=== PATIENT | female | born 1990 | race Caucasian/White ===

== ENCOUNTER → 2017-11-18 | Outpatient (CLI) | payer OTHER ==
[~2017-11-18] MED LIST: ALPR-411 PO; AMIT25TA9 PO; CITA10TA4 PO; DICY10CA12 PO; ONDA4TAB46 PO; PANT40TA PO
--- NOTE | 2017-11-18 12:35 | DIAGNOSTIC IMAGING REPORT ---
(BARIUM SWALLOW) ESOPHAGUS CLINICAL HISTORY: Abdominal pain, nausea and vomiting. COMPARISON STUDY: None. FLUOROSCOPY TIME: 1.1 minutes. 20 fluoroscopic images were obtained. FINDINGS: Esophageal motility was normal. No esophageal mass or stricture was identified. A 13 mm barium tablet passed freely into the stomach. No reflux was elicited. No hiatal hernia was noted. IMPRESSION: Normal barium swallow. Electronically signed by: Marcin Eubanks M.D. 11/18/2017 12:33 PM Dictated Date/Time: 11/18/2017 12:33 PM
== END | disposition home or self-care (01) ==
LOC: C.RAD 11:48
PROVIDERS: ATTEND Internal Medicine
DX: R10.13 Epigastric pain (principal); R11.2 Nausea with vomiting, unspecified

== ENCOUNTER 2019-02-23 07:31 | Inpatient (IN) ==
[2019-02-23] MEDS ORDERED: OXYTOCIN 30 UNITS/500 ML BAG IV PRN (09:51)
[2019-02-23] MEDS ORDERED: LACTATED RINGER'S 1,000 ML IV PRN (09:51)
[2019-02-23 10:14] LABS: Hematocrit (blood only) 32.5 % (37-47); Hemoglobin 11.6 g/dL (12.0-16.0); Mean Platelet Volume 9.1 fL (7.4-10.4); Platelet Count 240 K/uL (130-400); RDW Coefficient of Variation 13.3 % (11.5-14.5); RDW Standard Deviation 43.5 fL (36.4-46.3); Red Blood Count 3.61 M/uL (4.2-5.4); White Blood Count 11.21 K/uL (4.8-10.8)
[2019-02-23] MEDS ORDERED: miSOPROStol 25 MCG TAB PV ONE (10:14)
[2019-02-23] MEDS ORDERED: DINOPROSTONE 10 MG INSERT PV ONE (10:19)
--- NOTE | 2019-02-23 10:19 | Obstetrical Progress Note ---
Date of Service February 23, 2019 Subjective Admit Note 28 F P0000 at 37 weeks admitted for induction of labor for cholestasis of with bile acids in office of 14. Patient received steroids for lung maturation last week. GBS is negative. FHT Cat 1. Cervix is 1/50/- 3/posterior/soft/vertex/intact. EFW 7.5 lbs. Will start with Cervidil 10 mg vaginally. discussed with patient and spouse. Results & Data Vital Signs (Past 12 Hours) Vital Signs Temp Pulse Resp BP 02/23/19 10:00 96 H 125/85 02/23/19 09:53 37.3 C 18
[2019-02-23 10:41] LABS: Mean Corpuscular Hgb Conc 35.7 g/dL (32-36)
--- NOTE | 2019-02-23 11:14 | Obstetrical Progress Note ---
Date of Service February 23, 2019 Physical Exam Physical Exam: Cervidil 10 mg placed vaginally. T Cat 1. Will monitor for 2 hours then ambulate. Results & Data Vital Signs (Past 12 Hours) Vital Signs Temp Pulse Resp BP 02/23/19 10:00 96 H 125/85 02/23/19 09:53 37.3 C 18
[2019-02-23] MEDS: LACTATED RINGER'S 1,000 ML IV SCH (18:36)
[2019-02-23] MEDS ORDERED: OXYTOCIN 20 UNITS in LACTATED RINGER'S 1,000 ML IV SCH (20:15)
--- NOTE | 2019-02-23 23:12 | Obstetrical Progress Note ---
Date of Service February 23, 2019 Physical Exam Physical Exam: Cervidil pulled out of vagina. Cervix 2/50/50/- 3/vertex/midposition. FHT Cat 1. Will allow to eat/shower. Will start Cytotec 50mcg orally. Results & Data Vital Signs (Past 12 Hours) Vital Signs Temp Pulse Resp BP 02/23/19 23:06 90 138/89 02/23/19 19:20 37.0 C 18 02/23/19 19:09 87 133/86 02/23/19 17:15 18 02/23/19 15:14 75 124/75 02/23/19 15:13 37.0 C 18 02/23/19 13:01 18 02/23/19 12:07 79 113/75 02/23/19 12:00 18
[2019-02-23] MEDS ORDERED: miSOPROStol 50 MCG TAB PO ONE (23:13)
[2019-02-23] MEDS ORDERED: BUTORPHANOL TARTRATE 2 MG/ML VIAL IV PRN (23:30)
[2019-02-24] MEDS ORDERED: LACTATED RINGER'S 1,000 ML IV PRN ×2 (07:36→09:24)
[2019-02-24] MEDS ORDERED: OXYTOCIN 30 UNITS/500 ML BAG IV PRN ×2 (07:36→23:28)
--- NOTE | 2019-02-24 07:36 | Obstetrical Progress Note ---
Date of Service February 24, 2019 Subjective Patient is seen and examined She is a 28 yo at 37.1 wks who was admitted by Dr. Donohue for IOL for ICP Reviewed her records and PMH She received Cervidil once and has been ron q 2-4 min, feels them but not very painful No LOF/VB +FM VSS Afebrile VE 3/ 50%/ -2 FHR categ I Brandi ctxs q 2-4 min Discussed augmentation of labor with low dose pitocin, agreed Epidural for pain when she desires Continue to monitor closely Results & Data Vital Signs (Past 12 Hours) Vital Signs Temp Pulse Resp BP 02/24/19 07:11 81 120/80 02/24/19 07:10 36.6 C 18 02/24/19 05:39 36.6 C 72 18 118/85 02/24/19 01:44 93 H 120/76 02/23/19 23:06 37.0 C 90 18 138/89
[2019-02-24] MEDS: LACTATED RINGER'S 1,000 ML IV SCH ×3 (07:38→13:42)
--- NOTE | 2019-02-24 08:13 | Anesthesiology Consultation ---
Date of Service February 24, 2019 Assessment & Plan Chart Review Chart Review: Acceptable Risk for Labor Epidural Consults Requested none ASA ASA2 Proposed Anesthesia Anesthesia Type: Labor Epidural Risk / Benefits Reviewed With: PT / POA / Parent / Guardian, Accepts Plan and Informed Consent Obtained History Height/Weight Height: 1.63 m Weight: 99.79 kg Allergies Allergy/AdvReac Type Severity Reaction Status Date / Time cephalexin Allergy Hives Verified 02/23/19 11:40 Penicillins Allergy Hives Unverified 08/17/18 13:24 Sulfa (Sulfonamide Allergy Hives Unverified 08/17/18 13:24 Antibiotics) Medications Home Medications Medication Instructions Recorded Confirmed Last Taken duloxetine [Cymbalta] 20 mg PO DAILY 02/23/19 02/23/19 02/22/19 pantoprazole [Protonix] 40 mg PO DAILY 02/23/19 02/23/19 02/22/19 vit-iron fum-folic ac 1 tab PO DAILY 02/23/19 02/23/19 02/22/19 [ Vitamin] Active Medications Generic Name Dose Route Start Last Admin Trade Name Freq PRN Reason Stop Dose Admin Lactated Ringer's 1,000 mls @ 150 mls/hr 02/23/19 10:00 02/24/19 07:38 Lr IV 02/25/19 09:59 999 mls/hr .[id number] BRENDA Administration Oxytocin 30 units in 500 mls @ 2 mls/hr 02/24/19 07:36 02/24/19 07:48 Pitocin IV 02/26/19 07:35 0.12 units/hr .Q24H PRN 2 mls/hr Labor Induction/Augmentation Administration Protocol 0.12 UNITS/HR NPO Date Last Intake of Fluids: 02/24/19 Time Last Intake of Fluids: 08:00 Date Last Intake of Solids: 02/24/19 Time Last Intake of Solids: 02:00 Past Medical History Medical History Depression GERD (gastroesophageal reflux disease) Controlled with medicine IBS (irritable bowel syndrome) Ostium secundum atrial septal defect history of as a baby. Has closed off since Asymptomatic No significant past medical history Exercise / Class Metabolic Activity II 4-5 Yardwork/Stairs/Walk up hill Past Family History Family History Other No significant family history Past Surgical History Surgical History H/O colonoscopy H/O esophagogastroduodenoscopy Dana teeth extracted Past Anesthesia History No Hx of Anesthesia Complications and No Family Hx of Anesthesia Complications History of PONV No Hx of PONV and Hx of Motion Sickness Social History Smoking Status: Former smoker (Quit 2 years ago) Do You Dip or Chew Tobacco: No Hx Alcohol Use: Yes alcohol intake frequency: holidays/special occasions only Hx Substance Use: No Review of Systems Denies h/o major bleeding disorder Denies taking any anticoagulant Physical Exam Vital Signs Last Vital Signs Temp 36.6 C 02/24/19 07:10 Pulse 79 02/24/19 07:50 Resp 18 02/24/19 07:10 BP 125/83 02/24/19 07:50 Constitutional + obese ENMT Mouth: no TMJ abnormality and no TMJ clicking Thyromental Distance: > or= 3.5 Finger Breadths Mallampati Class: II Neck normal visual inspection; neck extension not limited Respiratory Auscultation: lungs clear to auscultation bilaterally Cardiovascular Rate/Rhythm: regular rate and regular rhythm Psychiatric Orientation: alert and oriented x 3 Testing Laboratory Results 02/23/19 10:01
[2019-02-24] MEDS ORDERED: ePHEDrine sulfate 50 MG/ML AMP ONE (08:41)
[2019-02-24] MEDS ORDERED: BUPIVACAINE 0.25% 30 ML VIAL ONE ×2 (08:41→18:23)
[2019-02-24] MEDS ORDERED: fentaNYL citrate 100 MCG/2 ML VIAL ONE ×2 (08:42→18:23)
[2019-02-24] MEDS ORDERED: fentaNYL 2MCG/ML ROPIV 1.25MG/ML 100 ML BAG EPI ONE (08:42)
[2019-02-24 08:47] LABS: Alanine Aminotransferase 19 U/L (12-78); Albumin Level 2.7 gm/dl (3.4-5.0); Aspartate Aminotransferase 13 U/L (15-37); BUN Creatinine Ratio 10.1 (10-20); Blood Urea Nitrogen 5 mg/dl (7-18); Calcium 8.9 mg/dl (8.5-10.1); Carbon Dioxide 21 mmol/L (21-32); Chloride 105 mmol/L (98-107); Creatinine Clr Calc Pharmacy 181.3 ml/min; Est GFR (African American) > 150.0; Est GFR (Non-African American) 130.2; Glucose 85 mg/dl (70-99); Potassium 3.4 mmol/L (3.5-5.1); Sodium 136 mmol/L (136-145)
[2019-02-24 08:49] LABS: Albumin Globulin Ratio 0.7 (0.9-2); Alkaline Phosphatase 157 U/L (45-117); Bilirubin,Total 0.5 mg/dl (0.2-1); Globulin 3.9 gm/dl (2.5-4.0); Total Protein 6.6 gm/dl (6.4-8.2)
[2019-02-24] MEDS ORDERED: NALOXONE HCL 0.4 MG/1 ML VIAL/CARP IV PRN (09:24)
[2019-02-24] MEDS ORDERED: NALBUPHINE HCL INJ 10 MG/ML AMP IV PRN (09:24)
[2019-02-24] MEDS ORDERED: fentaNYL 2MCG/ML ROPIV 1.25MG/ML 100 ML BAG EPI PRN (09:24)
[2019-02-24] MEDS ORDERED: PROMETHAZINE HCL 12.5 MG in SODIUM CHLORIDE 0.9% 50 ML IV PRN (09:24)
[2019-02-24] MEDS ORDERED: DiphenhydrAMINE HCL 50 MG/ML VIAL IV PRN (09:24)
[2019-02-24] MEDS ORDERED: NALOXONE HCL 1 MG in SODIUM CHLORIDE 0.9% 1000ML 1,000 ML IV PRN (09:24)
[2019-02-24] MEDS ORDERED: ePHEDrine sulfate 50 MG/ML AMP IV PRN (09:24)
--- NOTE | 2019-02-24 10:19 | Obstetrical Progress Note ---
Date of Service February 24, 2019 Subjective Patient is comfortable ow, received epidural for pain FHR had decels when maternal BP's were low Now back to 130-140's with good variability and accel after VE VE; 3-4 cm/ 50%/ -3, ballotable head Ctxs q 2-4 min, Pitocin at 6 miu/min Continue to monitor closely Results & Data Vital Signs (Past 12 Hours) Vital Signs Temp Pulse Resp BP Pulse Ox 02/24/19 10:14 70 99 02/24/19 10:09 69 98 02/24/19 10:05 81 126/76 02/24/19 10:04 75 99 02/24/19 09:59 75 142/68 H 95 02/24/19 09:55 69 101/57 L 02/24/19 09:54 64 97 02/24/19 09:51 36.6 C 65 104/57 L 02/24/19 09:49 61 100/55 L 97 02/24/19 09:46 52 L 99/51 L 02/24/19 09:45 60 18 103/51 L 02/24/19 09:44 65 99 02/24/19 09:39 69 97 02/24/19 09:35 80 123/73 02/24/19 09:34 73 97 02/24/19 09:30 18 02/24/19 09:29 79 97 02/24/19 09:24 75 98 02/24/19 09:22 88 123/70 02/24/19 09:20 72 18 123/66 02/24/19 09:19 70 97 02/24/19 09:18 71 121/69 02/24/19 09:17 72 121/73 02/24/19 09:15 70 18 123/67 02/24/19 09:14 75 129/72 99 02/24/19 09:12 72 133/72 02/24/19 09:10 73 18 144/88 H 02/24/19 09:09 83 100 02/24/19 09:07 88 149/83 H 02/24/19 09:06 86 176/102 H 02/24/19 09:04 92 H 98 02/24/19 08:59 111 H 99 02/24/19 08:56 76 158/84 H 02/24/19 08:54 91 H 99 02/24/19 08:53 99 H 89 L 02/24/19 08:49 89 100 02/24/19 08:43 87 18 129/87 02/24/19 07:50 79 125/83 02/24/19 07:11 81 120/80 02/24/19 07:10 36.6 C 18 02/24/19 05:39 36.6 C 72 18 118/85 02/24/19 01:44 93 H 120/76 02/23/19 23:06 37.0 C 90 18 138/89
[2019-02-24] MEDS ORDERED: OXYTOCIN 20 UNITS in LACTATED RINGER'S 1,000 ML IV SCH (11:00)
[2019-02-24] MEDS ORDERED: ACETAMINOPHEN SOL 650 MG/20.3 ML UDC PO PRN (12:52)
[2019-02-24] MEDS: ONDANSETRON INJ 2 MG/ML 2 ML VIAL IV PRN ×2 (12:59→20:05)
[2019-02-24] MEDS ORDERED: ACETAMINOPHEN 325 MG TAB PO PRN ×2 (13:16→23:28)
--- NOTE | 2019-02-24 13:26 | Obstetrical Progress Note ---
Date of Service February 24, 2019 Subjective Patient is reevaluated She has DEL CASTILLO since she woke up No change in vision/ numbness nor tingling Better when closes her eye h/o migraines Nausea+ VSS Afebrile VE; 4-5 cm/ 60%/ -2, tight bag, AROM'ed abundant clear fluid+ FHR categ I Ctxs q 2--4 min, pitocin at 6 miu/min 02/24/19 Range/Units 07:59 Sodium 136 (136-145) mmol/L Potassium 3.4 L (3.5-5.1) mmol/L Chloride 105 (98-107) mmol/L Carbon Dioxide 21 (21-32) mmol/L Anion Gap 10.0 (3-11) BUN 5 L (7-18) mg/dl Creatinine 0.54 L (0.6-1.2) mg/dl Est Cr Clr Drug Dosing 181.3 ml/min Est GFR ( Amer) > 150.0 Est GFR (Non-Af Amer) 130.2 BUN/Creatinine Ratio 10.1 (10-20) Glucose 85 (70-99) mg/dl Calcium 8.9 (8.5-10.1) mg/dl Total Bilirubin 0.5 (0.2-1) mg/dl AST 13 L (15-37) U/L ALT 19 (12-78) U/L Alkaline Phosphatase 157 H (45-117) U/L Total Protein 6.6 (6.4-8.2) gm/dl Albumin 2.7 L (3.4-5.0) gm/dl Globulin 3.9 (2.5-4.0) gm/dl Albumin/Globulin Ratio 0.7 L (0.9-2) Zofran, Tylenol Continue to monitor closely Results & Data Vital Signs (Past 12 Hours) Vital Signs Temp Pulse Resp BP Pulse Ox 02/24/19 13:20 72 119/74 02/24/19 13:19 83 99 02/24/19 13:14 68 99 02/24/19 13:09 72 99 02/24/19 13:06 75 120/65 02/24/19 13:04 68 99 02/24/19 13:01 63 115/63 02/24/19 12:59 70 99 02/24/19 12:54 70 100 02/24/19 12:51 63 111/63 02/24/19 12:49 66 98 02/24/19 12:46 36.7 C 70 120/56 L 02/24/19 12:44 88 99 02/24/19 12:39 67 97 02/24/19 12:36 68 113/61 02/24/19 12:34 70 98 02/24/19 12:29 72 99 02/24/19 12:24 68 98 02/24/19 12:21 65 115/65 02/24/19 12:19 66 99 02/24/19 12:15 18 02/24/19 12:14 64 98 02/24/19 12:09 69 99 02/24/19 12:05 68 105/55 L 02/24/19 12:04 74 98 02/24/19 11:59 72 97 02/24/19 11:54 71 97 02/24/19 11:50 65 103/55 L 02/24/19 11:49 67 97 02/24/19 11:44 66 97 02/24/19 11:39 76 96 02/24/19 11:35 67 106/58 L 02/24/19 11:34 67 96 02/24/19 11:30 18 02/24/19 11:29 77 96 02/24/19 11:24 66 97 02/24/19 11:21 68 104/59 L 02/24/19 11:19 66 97 02/24/19 11:14 65 97 02/24/19 11:09 77 97 02/24/19 11:05 71 109/58 L 02/24/19 11:04 77 97 02/24/19 10:59 69 97 02/24/19 10:54 70 97 02/24/19 10:51 71 109/64 02/24/19 10:49 73 97 02/24/19 10:44 69 99 02/24/19 10:39 79 98 02/24/19 10:35 67 109/62 02/24/19 10:34 73 97 02/24/19 10:31 18 02/24/19 10:29 69 97 02/24/19 10:24 67 98 02/24/19 10:21 64 107/60 05 10:19 64 98 02/24/19 10:14 70 99 02/24/19 10:09 69 98 02/24/19 10:05 81 126/76 02/24/19 10:04 75 99 02/24/19 09:59 75 142/68 H 95 02/24/19 09:55 69 101/57 L 02/24/19 09:54 64 97 02/24/19 09:51 36.6 C 65 104/57 L 02/24/19 09:49 61 100/55 L 97 02/24/19 09:46 52 L 99/51 L 02/24/19 09:45 60 18 103/51 L 02/24/19 09:44 65 99 02/24/19 09:39 69 97 02/24/19 09:35 80 123/73 02/24/19 09:34 73 97 02/24/19 09:30 18 02/24/19 09:29 79 97 02/24/19 09:24 75 98 02/24/19 09:22 88 123/70 02/24/19 09:20 72 18 123/66 02/24/19 09:19 70 97 02/24/19 09:18 71 121/69 02/24/19 09:17 72 121/73 02/24/19 09:15 70 18 123/67 02/24/19 09:14 75 129/72 99 02/24/19 09:12 72 133/72 02/24/19 09:10 73 18 144/88 H 02/24/19 09:09 83 100 02/24/19 09:07 88 149/83 H 02/24/19 09:06 86 176/102 H 02/24/19 09:04 92 H 98 02/24/19 08:59 111 H 99 02/24/19 08:56 76 158/84 H 02/24/19 08:54 91 H 99 02/24/19 08:53 99 H 89 L 02/24/19 08:49 89 100 02/24/19 08:43 87 18 129/87 02/24/19 07:50 79 125/83 02/24/19 07:11 81 120/80 02/24/19 07:10 36.6 C 18 02/24/19 05:39 36.6 C 72 18 118/85 02/24/19 01:44 93 H 120/76
[2019-02-24] MEDS ORDERED: CALCIUM CARBONATE 500 MG CHEWABLE TAB PO PRN (14:47)
[2019-02-24] MEDS ORDERED: CALCIUM CARBONATE 500 MG CHEWABLE TAB ONE (14:52)
[2019-02-24] MEDS ORDERED: PANTOprazole 40 MG TAB PO STA (17:11)
[2019-02-24] MEDS ORDERED: Nursing to Pharmacy Communication ONE ×2 (17:18→22:22)
[2019-02-24] MEDS ORDERED: CALCIUM CARBONATE 500 MG CHEWABLE TAB PO STA (18:04)
--- NOTE | 2019-02-24 18:05 | Obstetrical Progress Note ---
Date of Service February 24, 2019 Subjective Patient feels rectal pressure Heart burn+ No more DEL CASTILLO VSS Afebrile VE: 8/ 90%/ 0 FHR categ I Continue to monitor closely Results & Data Vital Signs (Past 12 Hours) Vital Signs Temp Pulse Resp BP Pulse Ox 02/24/19 17:59 90 100 02/24/19 17:54 85 100 02/24/19 17:51 75 124/65 02/24/19 17:49 69 97 02/24/19 17:44 64 97 02/24/19 17:39 74 100 02/24/19 17:35 67 115/66 02/24/19 17:34 67 98 02/24/19 17:29 63 98 02/24/19 17:24 71 97 02/24/19 17:21 86 20 139/88 02/24/19 17:19 74 98 02/24/19 17:14 67 98 02/24/19 17:09 73 97 02/24/19 17:05 61 133/77 02/24/19 17:04 65 97 02/24/19 16:59 36.7 C 74 20 98 02/24/19 16:54 65 97 02/24/19 16:50 73 127/77 02/24/19 16:49 71 97 02/24/19 16:44 82 98 02/24/19 16:39 78 96 02/24/19 16:35 76 127/73 02/24/19 16:34 68 96 02/24/19 16:29 73 99 02/24/19 16:24 69 98 02/24/19 16:20 67 118/72 02/24/19 16:19 65 97 02/24/19 16:14 64 97 02/24/19 16:09 71 98 02/24/19 16:06 65 116/69 02/24/19 16:04 65 97 02/24/19 15:59 72 97 02/24/19 15:54 68 97 02/24/19 15:51 71 20 118/77 02/24/19 15:49 70 98 02/24/19 15:44 74 97 02/24/19 15:39 71 98 02/24/19 15:35 78 122/74 02/24/19 15:34 73 98 02/24/19 15:29 68 98 02/24/19 15:24 68 99 05 15:20 68 122/75 05 15:19 70 99 05 15:14 71 99 02/24/19 15:09 66 99 02/24/19 15:06 37.0 C 77 18 117/70 02/24/19 15:04 75 99 02/24/19 14:59 69 99 02/24/19 14:54 74 99 02/24/19 14:50 69 115/68 02/24/19 14:49 66 98 02/24/19 14:44 71 99 02/24/19 14:39 68 98 02/24/19 14:36 71 117/71 02/24/19 14:34 73 98 02/24/19 14:29 69 99 02/24/19 14:24 76 99 02/24/19 14:20 87 120/71 02/24/19 14:19 79 99 02/24/19 14:14 72 100 02/24/19 14:09 72 99 02/24/19 14:06 74 121/67 02/24/19 14:04 69 100 02/24/19 14:01 18 02/24/19 13:59 91 H 100 02/24/19 13:54 69 100 02/24/19 13:51 68 109/58 L 02/24/19 13:49 70 100 02/24/19 13:44 72 100 02/24/19 13:39 70 100 02/24/19 13:35 78 122/68 02/24/19 13:34 72 100 02/24/19 13:31 18 02/24/19 13:29 74 100 02/24/19 13:24 79 100 02/24/19 13:20 72 119/74 02/24/19 13:19 83 99 02/24/19 13:14 68 99 02/24/19 13:09 72 99 02/24/19 13:06 75 120/65 02/24/19 13:04 68 99 02/24/19 13:01 63 18 115/63 02/24/19 12:59 70 99 02/24/19 12:54 70 100 02/24/19 12:51 63 111/63 02/24/19 12:49 66 98 02/24/19 12:46 36.7 C 70 120/56 L 02/24/19 12:44 88 99 05 12:39 67 97 02/24/19 12:36 68 113/61 05 12:34 70 98 02/24/19 12:29 72 99 05 12:24 68 98 02/24/19 12:21 65 115/65 05 12:19 66 99 05 12:15 18 02/24/19 12:14 64 98 02/24/19 12:09 69 99 05 12:05 68 105/55 L 02/24/19 12:04 74 98 02/24/19 11:59 72 97 02/24/19 11:54 71 97 02/24/19 11:50 65 103/55 L 02/24/19 11:49 67 97 02/24/19 11:44 66 97 02/24/19 11:39 76 96 02/24/19 11:35 67 106/58 L 02/24/19 11:34 67 96 02/24/19 11:30 18 02/24/19 11:29 77 96 05 11:24 66 97 02/24/19 11:21 68 104/59 L 02/24/19 11:19 66 97 02/24/19 11:14 65 97 02/24/19 11:09 77 97 02/24/19 11:05 71 109/58 L 02/24/19 11:04 77 97 02/24/19 10:59 69 97 02/24/19 10:54 70 97 02/24/19 10:51 71 109/64 02/24/19 10:49 73 97 02/24/19 10:44 69 99 05 10:39 79 98 02/24/19 10:35 67 109/62 02/24/19 10:34 73 97 02/24/19 10:31 18 02/24/19 10:29 69 97 02/24/19 10:24 67 98 05 10:21 64 107/60 05 10:19 64 98 05 10:14 70 99 05 10:09 69 98 02/24/19 10:05 81 126/76 02/24/19 10:04 75 99 05 09:59 75 142/68 H 95 02/24/19 09:55 69 101/57 L 02/24/19 09:54 64 97 02/24/19 09:51 36.6 C 65 104/57 L 02/24/19 09:49 61 100/55 L 97 02/24/19 09:46 52 L 99/51 L 02/24/19 09:45 60 18 103/51 L 02/24/19 09:44 65 99 02/24/19 09:39 69 97 02/24/19 09:35 80 123/73 02/24/19 09:34 73 97 02/24/19 09:30 18 02/24/19 09:29 79 97 02/24/19 09:24 75 98 02/24/19 09:22 88 123/70 02/24/19 09:20 72 18 123/66 02/24/19 09:19 70 97 02/24/19 09:18 71 121/69 02/24/19 09:17 72 121/73 02/24/19 09:15 70 18 123/67 02/24/19 09:14 75 129/72 99 02/24/19 09:12 72 133/72 02/24/19 09:10 73 18 144/88 H 02/24/19 09:09 83 100 02/24/19 09:07 88 149/83 H 02/24/19 09:06 86 176/102 H 02/24/19 09:04 92 H 98 02/24/19 08:59 111 H 99 02/24/19 08:56 76 158/84 H 02/24/19 08:54 91 H 99 02/24/19 08:53 99 H 89 L 02/24/19 08:49 89 100 02/24/19 08:43 87 18 129/87 02/24/19 07:50 79 125/83 02/24/19 07:11 81 120/80 02/24/19 07:10 36.6 C 18
[2019-02-24] MEDS ORDERED: BUPIVACAINE 0.5 % 5 MG/1 ML PF 10ML VIAL ONE (18:27)
--- NOTE | 2019-02-24 19:32 | Obstetrical Progress Note ---
Date of Service February 24, 2019 Subjective Patient is reevaluated She was uncomfortable with ctxs and feeling rectal pressure, Bolus was given through epidural Now sleeping FHR categ I Continue to monitor Results & Data Vital Signs (Past 12 Hours) Vital Signs Temp Pulse Resp BP Pulse Ox 02/24/19 19:29 68 97 02/24/19 19:24 70 98 02/24/19 19:20 71 103/63 02/24/19 19:19 71 95 02/24/19 19:14 67 96 02/24/19 19:09 65 97 02/24/19 19:05 69 104/61 02/24/19 19:04 67 96 02/24/19 18:59 71 20 96 02/24/19 18:54 67 99 02/24/19 18:52 36.7 C 20 02/24/19 18:51 63 108/67 02/24/19 18:49 66 98 02/24/19 18:45 63 120/73 02/24/19 18:44 79 98 02/24/19 18:39 103 H 99 02/24/19 18:36 70 145/95 H 02/24/19 18:34 99 H 100 02/24/19 18:32 94 H 163/84 H 02/24/19 18:31 125 H 178/105 H 02/24/19 18:29 76 100 02/24/19 18:24 105 H 100 02/24/19 18:21 96 H 20 143/89 H 02/24/19 18:19 119 H 99 02/24/19 18:14 79 99 02/24/19 18:09 106 H 100 02/24/19 18:06 89 140/84 02/24/19 18:04 106 H 99 02/24/19 17:59 90 100 02/24/19 17:54 85 20 100 02/24/19 17:51 75 124/65 02/24/19 17:49 69 97 02/24/19 17:44 64 97 02/24/19 17:39 74 100 02/24/19 17:35 67 115/66 02/24/19 17:34 67 98 02/24/19 17:29 63 98 02/24/19 17:24 71 97 02/24/19 17:21 86 20 139/88 02/24/19 17:19 74 98 05/07/19 17:14 67 98 05/07/19 17:09 73 97 05/07/19 17:05 61 133/77 05/07/19 17:04 65 97 05/07/19 16:59 36.7 C 74 20 98 05/07/19 16:54 65 97 05/07/19 16:50 73 127/77 05/07/19 16:49 71 97 05/07/19 16:44 82 98 05/07/19 16:39 78 96 05/07/19 16:35 76 20 127/73 05/07/19 16:34 68 96 05/07/19 16:29 73 99 05/07/19 16:24 69 98 05/07/19 16:20 67 118/72 05/07/19 16:19 65 97 05/07/19 16:14 64 97 05/07/19 16:09 71 98 05/07/19 16:06 65 116/69 05/07/19 16:04 65 20 97 05/07/19 15:59 72 97 05/07/19 15:54 68 97 05/07/19 15:51 71 20 118/77 05/07/19 15:49 70 98 05/07/19 15:44 74 97 05/07/19 15:39 71 98 05/07/19 15:35 78 20 122/74 05/07/19 15:34 73 98 05/07/19 15:29 68 98 05/07/19 15:24 68 99 05/07/19 15:20 68 122/75 05/07/19 15:19 70 99 05/07/19 15:14 71 99 05/07/19 15:09 66 99 05/07/19 15:06 37.0 C 77 18 117/70 05/07/19 15:04 75 99 05/07/19 14:59 69 99 05/07/19 14:54 74 99 05/07/19 14:50 69 115/68 05/07/19 14:49 66 98 05/07/19 14:44 71 99 05/07/19 14:39 68 98 05/07/19 14:36 71 117/71 05/07/19 14:34 73 98 05/07/19 14:29 69 99 05/07/19 14:24 76 99 05/07/19 14:20 87 120/71 05 14:19 79 99 05 14:14 72 100 02/24/19 14:09 72 99 02/24/19 14:06 74 121/67 02/24/19 14:04 69 100 02/24/19 14:01 18 02/24/19 13:59 91 H 100 02/24/19 13:54 69 100 02/24/19 13:51 68 109/58 L 02/24/19 13:49 70 100 02/24/19 13:44 72 100 02/24/19 13:39 70 100 02/24/19 13:35 78 122/68 02/24/19 13:34 72 100 02/24/19 13:31 18 02/24/19 13:29 74 100 02/24/19 13:24 79 100 02/24/19 13:20 72 119/74 02/24/19 13:19 83 99 02/24/19 13:14 68 99 02/24/19 13:09 72 99 02/24/19 13:06 75 120/65 02/24/19 13:04 68 99 02/24/19 13:01 63 18 115/63 02/24/19 12:59 70 99 02/24/19 12:54 70 100 02/24/19 12:51 63 111/63 02/24/19 12:49 66 98 02/24/19 12:46 36.7 C 70 120/56 L 02/24/19 12:44 88 99 02/24/19 12:39 67 97 02/24/19 12:36 68 113/61 02/24/19 12:34 70 98 02/24/19 12:29 72 99 02/24/19 12:24 68 98 02/24/19 12:21 65 115/65 02/24/19 12:19 66 99 02/24/19 12:15 18 02/24/19 12:14 64 98 02/24/19 12:09 69 99 02/24/19 12:05 68 105/55 L 02/24/19 12:04 74 98 02/24/19 11:59 72 97 02/24/19 11:54 71 97 02/24/19 11:50 65 103/55 L 02/24/19 11:49 67 97 02/24/19 11:44 66 97 02/24/19 11:39 76 96 02/24/19 11:35 67 106/58 L 02/24/19 11:34 67 96 02/24/19 11:30 18 02/24/19 11:29 77 96 02/24/19 11:24 66 97 02/24/19 11:21 68 104/59 L 02/24/19 11:19 66 97 02/24/19 11:14 65 97 02/24/19 11:09 77 97 02/24/19 11:05 71 109/58 L 02/24/19 11:04 77 97 02/24/19 10:59 69 97 02/24/19 10:54 70 97 02/24/19 10:51 71 109/64 02/24/19 10:49 73 97 02/24/19 10:44 69 99 02/24/19 10:39 79 98 02/24/19 10:35 67 109/62 02/24/19 10:34 73 97 02/24/19 10:31 18 02/24/19 10:29 69 97 02/24/19 10:24 67 98 02/24/19 10:21 64 107/60 02/24/19 10:19 64 98 02/24/19 10:14 70 99 02/24/19 10:09 69 98 02/24/19 10:05 81 126/76 02/24/19 10:04 75 99 02/24/19 09:59 75 142/68 H 95 02/24/19 09:55 69 101/57 L 02/24/19 09:54 64 97 02/24/19 09:51 36.6 C 65 104/57 L 02/24/19 09:49 61 100/55 L 97 02/24/19 09:46 52 L 99/51 L 02/24/19 09:45 60 18 103/51 L 02/24/19 09:44 65 99 02/24/19 09:39 69 97 02/24/19 09:35 80 123/73 02/24/19 09:34 73 97 02/24/19 09:30 18 02/24/19 09:29 79 97 02/24/19 09:24 75 98 02/24/19 09:22 88 123/70 05/07/19 09:20 72 18 123/66 02/24/19 09:19 70 97 02/24/19 09:18 71 121/69 02/24/19 09:17 72 121/73 02/24/19 09:15 70 18 123/67 02/24/19 09:14 75 129/72 99 02/24/19 09:12 72 133/72 02/24/19 09:10 73 18 144/88 H 02/24/19 09:09 83 100 02/24/19 09:07 88 149/83 H 02/24/19 09:06 86 176/102 H 02/24/19 09:04 92 H 98 02/24/19 08:59 111 H 99 02/24/19 08:56 76 158/84 H 02/24/19 08:54 91 H 99 02/24/19 08:53 99 H 89 L 02/24/19 08:49 89 100 02/24/19 08:43 87 18 129/87 02/24/19 07:50 79 125/83
--- NOTE | 2019-02-24 22:01 | Obstetrical Progress Note ---
Date of Service February 24, 2019 Subjective Patient felt pressure and started to push head at +2, caput succanadeum FHR 140-150's,no decels Ctxs q 2-3 min Continue to monitor closely Results & Data Vital Signs (Past 12 Hours) Vital Signs Temp Pulse Resp BP Pulse Ox 02/24/19 21:59 108 H 83 L 02/24/19 21:54 102 H 100 02/24/19 21:52 95 H 129/89 81 L 02/24/19 21:49 98 H 20 81 L 02/24/19 21:45 101 H 80 L 02/24/19 21:44 102 H 98 02/24/19 21:39 107 H 81 L 02/24/19 21:35 105 H 135/85 02/24/19 21:34 98 H 100 02/24/19 21:29 101 H 100 02/24/19 21:24 95 H 100 02/24/19 21:20 101 H 126/76 02/24/19 21:19 106 H 99 02/24/19 21:14 106 H 100 02/24/19 21:09 96 H 100 02/24/19 21:05 83 123/72 02/24/19 21:04 77 99 02/24/19 20:59 73 100 02/24/19 20:58 20 02/24/19 20:54 70 100 02/24/19 20:52 77 126/74 02/24/19 20:49 105 H 100 02/24/19 20:44 76 100 02/24/19 20:39 70 100 02/24/19 20:36 69 122/71 02/24/19 20:34 76 100 02/24/19 20:33 36.5 C 20 02/24/19 20:29 85 100 02/24/19 20:24 80 100 02/24/19 20:21 70 127/75 02/24/19 20:19 70 99 02/24/19 20:14 71 100 02/24/19 20:09 73 100 02/24/19 20:05 84 118/73 02/24/19 20:04 93 H 100 02/24/19 19:59 102 H 100 02/24/19 19:54 88 99 02/24/19 19:50 89 110/68 02/24/19 19:49 80 99 02/24/19 19:44 69 98 05 19:39 75 99 05 19:36 72 106/63 05 19:34 68 97 02/24/19 19:29 68 97 02/24/19 19:24 70 98 05 19:20 71 103/63 02/24/19 19:19 71 95 0507 19:14 67 96 02/24/19 19:09 65 97 02/24/19 19:05 69 104/61 05 19:04 67 96 02/24/19 18:59 71 20 96 02/24/19 18:54 67 99 02/24/19 18:52 36.7 C 20 02/24/19 18:51 63 108/67 02/24/19 18:49 66 98 02/24/19 18:45 63 120/73 02/24/19 18:44 79 98 02/24/19 18:39 103 H 99 02/24/19 18:36 70 145/95 H 02/24/19 18:34 99 H 100 02/24/19 18:32 94 H 163/84 H 02/24/19 18:31 125 H 178/105 H 02/24/19 18:29 76 100 02/24/19 18:24 105 H 100 02/24/19 18:21 96 H 20 143/89 H 02/24/19 18:19 119 H 99 02/24/19 18:14 79 99 02/24/19 18:09 106 H 100 02/24/19 18:06 89 140/84 02/24/19 18:04 106 H 99 02/24/19 17:59 90 100 02/24/19 17:54 85 20 100 02/24/19 17:51 75 124/65 02/24/19 17:49 69 97 0507 17:44 64 97 05 17:39 74 100 02/24/19 17:35 67 115/66 05 17:34 67 98 0507 17:29 63 98 05 17:24 71 97 0507 17:21 86 20 139/88 05 17:19 74 98 0507 17:14 67 98 05 17:09 73 97 05/07/19 17:05 61 133/77 05/07/19 17:04 65 97 05/07/19 16:59 36.7 C 74 20 98 05/07/19 16:54 65 97 05/07/19 16:50 73 127/77 05/07/19 16:49 71 97 05/07/19 16:44 82 98 05/07/19 16:39 78 96 05/07/19 16:35 76 20 127/73 05/07/19 16:34 68 96 05/07/19 16:29 73 99 05/07/19 16:24 69 98 05/07/19 16:20 67 118/72 05/07/19 16:19 65 97 05/07/19 16:14 64 97 05/07/19 16:09 71 98 05/07/19 16:06 65 116/69 05/07/19 16:04 65 20 97 05/07/19 15:59 72 97 05/07/19 15:54 68 97 05/07/19 15:51 71 20 118/77 05/07/19 15:49 70 98 05/07/19 15:44 74 97 05/07/19 15:39 71 98 05/07/19 15:35 78 20 122/74 05/07/19 15:34 73 98 05/07/19 15:29 68 98 05/07/19 15:24 68 99 05/07/19 15:20 68 122/75 05/07/19 15:19 70 99 05/07/19 15:14 71 99 05/07/19 15:09 66 99 05/07/19 15:06 37.0 C 77 18 117/70 05/07/19 15:04 75 99 05/07/19 14:59 69 99 05/07/19 14:54 74 99 05/07/19 14:50 69 115/68 05/07/19 14:49 66 98 05/07/19 14:44 71 99 05/07/19 14:39 68 98 05/07/19 14:36 71 117/71 05/07/19 14:34 73 98 05/07/19 14:29 69 99 05/07/19 14:24 76 99 05/07/19 14:20 87 120/71 05/07/19 14:19 79 99 05/07/19 14:14 72 100 02/24/19 14:09 72 99 02/24/19 14:06 74 121/67 02/24/19 14:04 69 100 02/24/19 14:01 18 02/24/19 13:59 91 H 100 02/24/19 13:54 69 100 02/24/19 13:51 68 109/58 L 02/24/19 13:49 70 100 02/24/19 13:44 72 100 02/24/19 13:39 70 100 02/24/19 13:35 78 122/68 02/24/19 13:34 72 100 02/24/19 13:31 18 02/24/19 13:29 74 100 02/24/19 13:24 79 100 02/24/19 13:20 72 119/74 02/24/19 13:19 83 99 02/24/19 13:14 68 99 02/24/19 13:09 72 99 02/24/19 13:06 75 120/65 02/24/19 13:04 68 99 02/24/19 13:01 63 18 115/63 02/24/19 12:59 70 99 02/24/19 12:54 70 100 02/24/19 12:51 63 111/63 02/24/19 12:49 66 98 02/24/19 12:46 36.7 C 70 120/56 L 02/24/19 12:44 88 99 02/24/19 12:39 67 97 02/24/19 12:36 68 113/61 02/24/19 12:34 70 98 02/24/19 12:29 72 99 02/24/19 12:24 68 98 02/24/19 12:21 65 115/65 02/24/19 12:19 66 99 02/24/19 12:15 18 02/24/19 12:14 64 98 02/24/19 12:09 69 99 02/24/19 12:05 68 105/55 L 02/24/19 12:04 74 98 02/24/19 11:59 72 97 02/24/19 11:54 71 97 02/24/19 11:50 65 103/55 L 02/24/19 11:49 67 97 02/24/19 11:44 66 97 02/24/19 11:39 76 96 05/19 11:35 67 106/58 L 02/24/19 11:34 67 96 02/24/19 11:30 18 02/24/19 11:29 77 96 02/24/19 11:24 66 97 02/24/19 11:21 68 104/59 L 02/24/19 11:19 66 97 02/24/19 11:14 65 97 02/24/19 11:09 77 97 02/24/19 11:05 71 109/58 L 02/24/19 11:04 77 97 02/24/19 10:59 69 97 02/24/19 10:54 70 97 02/24/19 10:51 71 109/64 02/24/19 10:49 73 97 02/24/19 10:44 69 99 02/24/19 10:39 79 98 02/24/19 10:35 67 109/62 02/24/19 10:34 73 97 02/24/19 10:31 18 02/24/19 10:29 69 97 02/24/19 10:24 67 98 02/24/19 10:21 64 107/60 02/24/19 10:19 64 98 02/24/19 10:14 70 99 02/24/19 10:09 69 98 02/24/19 10:05 81 126/76 02/24/19 10:04 75 99
--- NOTE | 2019-02-24 22:42 | Obstetrical Progress Note ---
Date of Service February 24, 2019 Subjective Patient has been pushing for about an hour Head at +3, caput visible with pushes FHR 150's Continue to monitor Anticipate Results & Data Vital Signs (Past 12 Hours) Vital Signs Temp Pulse Resp BP Pulse Ox 02/24/19 22:39 133 H 96 02/24/19 22:37 129 H 84 L 02/24/19 22:34 102 H 90 02/24/19 22:31 96 H 84 L 02/24/19 22:29 116 H 78 L 02/24/19 22:25 131 H 88 L 02/24/19 22:24 99 H 97 02/24/19 22:20 81 110/78 02/24/19 22:19 105 H 82 L 02/24/19 22:14 93 H 78 L 02/24/19 22:12 101 H 82 L 02/24/19 22:09 102 H 86 L 02/24/19 22:06 98 H 20 112/73 02/24/19 22:05 105 H 79 L 02/24/19 22:04 97 H 97 02/24/19 21:59 98 H 100 02/24/19 21:54 102 H 100 02/24/19 21:52 95 H 129/89 81 L 02/24/19 21:49 98 H 20 81 L 02/24/19 21:45 101 H 80 L 02/24/19 21:44 102 H 98 02/24/19 21:39 107 H 81 L 02/24/19 21:35 105 H 135/85 02/24/19 21:34 98 H 100 02/24/19 21:29 101 H 100 02/24/19 21:24 95 H 100 02/24/19 21:20 101 H 126/76 02/24/19 21:19 106 H 99 02/24/19 21:14 106 H 100 02/24/19 21:09 96 H 100 02/24/19 21:05 83 123/72 02/24/19 21:04 77 99 02/24/19 20:59 73 100 02/24/19 20:58 20 02/24/19 20:54 70 100 02/24/19 20:52 77 126/74 02/24/19 20:49 105 H 100 02/24/19 20:44 76 100 02/24/19 20:39 70 100 02/24/19 20:36 69 122/71 02/24/19 20:34 76 100 02/24/19 20:33 36.5 C 20 02/24/19 20:29 85 100 02/24/19 20:24 80 100 02/24/19 20:21 70 127/75 02/24/19 20:19 70 99 02/24/19 20:14 71 100 02/24/19 20:09 73 100 02/24/19 20:05 84 118/73 02/24/19 20:04 93 H 100 02/24/19 19:59 102 H 100 02/24/19 19:54 88 99 02/24/19 19:50 89 110/68 02/24/19 19:49 80 99 02/24/19 19:44 69 98 02/24/19 19:39 75 99 02/24/19 19:36 72 106/63 02/24/19 19:34 68 97 02/24/19 19:29 68 97 02/24/19 19:24 70 98 02/24/19 19:20 71 103/63 02/24/19 19:19 71 95 02/24/19 19:14 67 96 02/24/19 19:09 65 97 02/24/19 19:05 69 104/61 02/24/19 19:04 67 96 02/24/19 18:59 71 20 96 02/24/19 18:54 67 99 02/24/19 18:52 36.7 C 20 02/24/19 18:51 63 108/67 02/24/19 18:49 66 98 02/24/19 18:45 63 120/73 02/24/19 18:44 79 98 02/24/19 18:39 103 H 99 02/24/19 18:36 70 145/95 H 02/24/19 18:34 99 H 100 02/24/19 18:32 94 H 163/84 H 02/24/19 18:31 125 H 178/105 H 02/24/19 18:29 76 100 02/24/19 18:24 105 H 100 02/24/19 18:21 96 H 20 143/89 H 02/24/19 18:19 119 H 99 02/24/19 18:14 79 99 02/24/19 18:09 106 H 100 05/07/19 18:06 89 140/84 05/07/19 18:04 106 H 99 05/07/19 17:59 90 100 05/07/19 17:54 85 20 100 05/07/19 17:51 75 124/65 05/07/19 17:49 69 97 05/07/19 17:44 64 97 05/07/19 17:39 74 100 05/07/19 17:35 67 115/66 05/07/19 17:34 67 98 05/07/19 17:29 63 98 05/07/19 17:24 71 97 05/07/19 17:21 86 20 139/88 05/07/19 17:19 74 98 05/07/19 17:14 67 98 05/07/19 17:09 73 97 05/07/19 17:05 61 133/77 05/07/19 17:04 65 97 05/07/19 16:59 36.7 C 74 20 98 05/07/19 16:54 65 97 05/07/19 16:50 73 127/77 05/07/19 16:49 71 97 05/07/19 16:44 82 98 05/07/19 16:39 78 96 05/07/19 16:35 76 20 127/73 05/07/19 16:34 68 96 05/07/19 16:29 73 99 05/07/19 16:24 69 98 05/07/19 16:20 67 118/72 05/07/19 16:19 65 97 05/07/19 16:14 64 97 05/07/19 16:09 71 98 05/07/19 16:06 65 116/69 05/07/19 16:04 65 20 97 05/07/19 15:59 72 97 05/07/19 15:54 68 97 05/07/19 15:51 71 20 118/77 05/07/19 15:49 70 98 05/07/19 15:44 74 97 05/07/19 15:39 71 98 05/07/19 15:35 78 20 122/74 05/07/19 15:34 73 98 05/07/19 15:29 68 98 05/07/19 15:24 68 99 05/07/19 15:20 68 122/75 05/07/19 15:19 70 99 05/07/19 15:14 71 99 02/24/19 15:09 66 99 02/24/19 15:06 37.0 C 77 18 117/70 02/24/19 15:04 75 99 02/24/19 14:59 69 99 02/24/19 14:54 74 99 02/24/19 14:50 69 115/68 02/24/19 14:49 66 98 02/24/19 14:44 71 99 02/24/19 14:39 68 98 02/24/19 14:36 71 117/71 02/24/19 14:34 73 98 02/24/19 14:29 69 99 02/24/19 14:24 76 99 02/24/19 14:20 87 120/71 02/24/19 14:19 79 99 02/24/19 14:14 72 100 02/24/19 14:09 72 99 02/24/19 14:06 74 121/67 02/24/19 14:04 69 100 02/24/19 14:01 18 02/24/19 13:59 91 H 100 02/24/19 13:54 69 100 02/24/19 13:51 68 109/58 L 02/24/19 13:49 70 100 02/24/19 13:44 72 100 02/24/19 13:39 70 100 02/24/19 13:35 78 122/68 02/24/19 13:34 72 100 02/24/19 13:31 18 02/24/19 13:29 74 100 02/24/19 13:24 79 100 02/24/19 13:20 72 119/74 02/24/19 13:19 83 99 02/24/19 13:14 68 99 02/24/19 13:09 72 99 02/24/19 13:06 75 120/65 02/24/19 13:04 68 99 02/24/19 13:01 63 18 115/63 02/24/19 12:59 70 99 02/24/19 12:54 70 100 02/24/19 12:51 63 111/63 02/24/19 12:49 66 98 02/24/19 12:46 36.7 C 70 120/56 L 02/24/19 12:44 88 99 02/24/19 12:39 67 97 05/07/19 12:36 68 113/61 05/07/19 12:34 70 98 02/24/19 12:29 72 99 02/24/19 12:24 68 98 02/24/19 12:21 65 115/65 02/24/19 12:19 66 99 02/24/19 12:15 18 02/24/19 12:14 64 98 02/24/19 12:09 69 99 02/24/19 12:05 68 105/55 L 02/24/19 12:04 74 98 02/24/19 11:59 72 97 02/24/19 11:54 71 97 02/24/19 11:50 65 103/55 L 02/24/19 11:49 67 97 02/24/19 11:44 66 97 02/24/19 11:39 76 96 02/24/19 11:35 67 106/58 L 02/24/19 11:34 67 96 02/24/19 11:30 18 02/24/19 11:29 77 96 02/24/19 11:24 66 97 02/24/19 11:21 68 104/59 L 02/24/19 11:19 66 97 02/24/19 11:14 65 97 02/24/19 11:09 77 97 02/24/19 11:05 71 109/58 L 02/24/19 11:04 77 97 02/24/19 10:59 69 97 02/24/19 10:54 70 97 02/24/19 10:51 71 109/64 02/24/19 10:49 73 97 02/24/19 10:44 69 99
[2019-02-24] MEDS ORDERED: SUPERCREAM 0.870% 15 GM JAR EXT PRN (23:28)
[2019-02-24] MEDS ORDERED: OXYCODONE/ACETAMINOPHEN 5mg/325mg TAB PO PRN (23:28)
[2019-02-24] MEDS ORDERED: BENZOCAINE 20% AER SPR 82.5 GM CAN EXT PRN (23:28)
[2019-02-24] MEDS ORDERED: BISACODYL 10 MG SUPP PR PRN (23:28)
[2019-02-24] MEDS ORDERED: HYDROCORTISONE ACETATE 25 MG SUPP PR PRN (23:28)
[2019-02-24] MEDS ORDERED: DIPHTHERIA/TETANUS/PERTUSSIS 0.5 ML SYR/VIAL IM ONE (23:28)
--- NOTE | 2019-02-24 23:43 | Anesthesia Procedure Note ---
Date of Service February 24, 2019 Anesthesia Post Epidural Note Vital Signs Vital Signs: Temp Pulse Resp BP Pulse Ox 36.9 C 101 H 18 108/59 L 98 02/24/19 23:23 02/24/19 23:39 02/24/19 23:23 02/24/19 23:33 02/24/19 23:39 Pain Intensity Rectal: Pain Intensity: 6 Notes Mental Status: alert / awake / arousable Patient Amnestic to Procedure: No Nausea / Vomiting: adequately controlled Pain: adequately controlled Airway Patency, RR, SpO2: stable & adequate BP & HR: stable & adequate Hydration State: stable & adequate Anesthetic Complications: no major complications apparent Epidural: Removed without complications and With tip intact Notes: Doing well. No complaints. VSS. Denies DEL CASTILLO, backache, etc. Epidural site looks clean, and dry. No signs of edema or erythema.
--- NOTE | 2019-02-25 01:49 | Delivery Summary ---
DATE OF OPERATION: 02/24/2019 TIME OF DELIVERY OF BABY: 2248 p.m. TIME OF DELIVERY OF PLACENTA: 2307 p.m. DETAILS OF DELIVERY: The patient was found to be fully dilated and desired to push. She pushed for about 1 hour and 10 minutes and delivered the head without difficulty. Shoulders came with the same push and baby was handed off to the mother where mouth and nose were suctioned. Cord was clamped x2 and cut at 1 minute delay and cord blood was obtained. It was 3-vessel cord. Perineum and vagina were checked for lacerations. There was a very small but second degree vaginal laceration in the posterior lower vagina. There was a first degree left labial laceration. Vaginal laceration was repaired with 2-0 Vicryl in a running locked fashion. The labia was repaired with 3-0 Vicryl on a SH needle in a running fashion. Excellent hemostasis was achieved. Placenta was found to be in the vagina, delivered spontaneously intact and complete. Uterus was explored, found to be empty. Lower segment was cleared of all clots and debris. EBL was 150 mL. Fundus was firm. Mom and baby tolerated the procedure well. Baby was a viable female , Apgars 8/9, weight is 3156 gr. No complications happened and I was present during whole procedure. I attest to the content of the Intraoperative Record and any orders documented therein. Any exceptions are noted below. MTDD
[2019-02-25 07:10] LABS: Hematocrit (blood only) 30.9 % (37-47); Hemoglobin 10.5 g/dL (12.0-16.0); Mean Corpuscular Volume 91.2 fL (80-100); Mean Platelet Volume 9.4 fL (7.4-10.4); Platelet Count 219 K/uL (130-400); RDW Coefficient of Variation 13.5 % (11.5-14.5); RDW Standard Deviation 44.9 fL (36.4-46.3); Red Blood Count 3.39 M/uL (4.2-5.4); White Blood Count 17.56 K/uL (4.8-10.8)
[2019-02-25] MEDS ORDERED: DULOXETINE HCL 20 MG CAP PO SCH ×2 (09:00→21:00)
[2019-02-25] MEDS: PRENATAL VITAMIN 1 TAB PO SCH (09:07)
[2019-02-25] MEDS: DOCUSATE SODIUM 100 MG CAP PO SCH ×2 (09:07→21:02)
[2019-02-25] MEDS: FERROUS SULFATE 325 MG TAB PO SCH (09:08)
[2019-02-25] MEDS: IBUPROFEN 600 MG TAB PO PRN ×3 (09:10→22:10)
--- NOTE | 2019-02-25 09:51 | Obstetrical Progress Note ---
Date of Service February 25, 2019 Assessment & Plan (1) normal course: PPD #1 Pt doing well Anticipate disch tomorrow Subjective Ambulation: ambulating normally Voiding: no voiding problems Passing Gas:: Yes Diet Tolerance:: regular diet Lochia:: Small Feeding Type:: breast feeding Review of Systems All systems reviewed & are unremarkable except as noted in HPI & below Physical Exam Vital Signs (Past 24 Hours) Last Vital Signs Temp 36.7 C 02/25/19 03:55 Pulse 65 02/25/19 03:55 Resp 18 02/25/19 03:55 BP 131/81 02/25/19 03:55 Pulse Ox 96 02/24/19 23:44 Constitutional WD/WN, vitals as above well developed and well nourished Eyes PERRL, conjunctivae normal, anicteric sclerae Neck trachea midline, no thyromegaly Respiratory normal respiratory effort, lungs clear to auscultation Auscultation: no crackles, no rales and no wheezes Cardiovascular RRR, no murmur, no edema Gastrointestinal (Abdomen) normal bowel sounds, soft, nontender, no hepatosplenomegaly Uterus is below umbilicus Musculoskeletal no cyanosis or clubbing, extremities motor strength 5/5 Skin no rashes, warm and dry Neurologic patellar DTR's 2+ bilat, sensation intact Psychiatric A+Ox3, euthymic affect Genitourinary normal external appearance
[2019-02-25] MEDS ORDERED: Nursing to Pharmacy Communication ONE (11:08)
[2019-02-25] MEDS ORDERED: PANTOprazole 40 MG TAB PO SCH (18:00)
[2019-02-25] MEDS ORDERED: BISACODYL 5 MG TABEC PO SCH (20:00)
[2019-02-26 07:12] LABS: Hematocrit (blood only) 32.7 % (37-47); Hemoglobin 11.5 g/dL (12.0-16.0)
[2019-02-26] MEDS: IBUPROFEN 600 MG TAB PO PRN (07:38)
[2019-02-26] MEDS: DOCUSATE SODIUM 100 MG CAP PO SCH (09:34)
[2019-02-26] MEDS: FERROUS SULFATE 325 MG TAB PO SCH (09:34)
[2019-02-26] MEDS: PRENATAL VITAMIN 1 TAB PO SCH (09:34)
--- NOTE | 2019-02-26 09:39 | Surgery Progress Note ---
Date of Service February 26, 2019 Subjective doing fine tolerating diet passing gas/BM Physical Exam Constitutional: WD/WN, vitals as above comfortable Gastrointestinal (Abdomen): abdomen soft fundus firm no edema neg Juvenal's for d/c today Results & Data Vital Signs (Past 12 Hours) Vital Signs Temp Pulse Resp BP Pulse Ox 02/26/19 07:00 36.6 C 65 20 128/87 98 02/25/19 23:05 36.7 C 77 18 117/72 97
== END 2019-02-26 11:41 | disposition home or self-care (01) | DRG 768 ==
LOC: 4S1 09:45 → 4S2 02-25 01:54

== ENCOUNTER 2022-03-14 05:51 | Inpatient (IN) ==
--- NOTE | 2022-03-14 06:22 | Progress Note ---
Date of Service March 14, 2022 Assessment & Plan (1) 39 weeks gestation of : Plan: Rule out labor, Recheck in 1 hr IV fluids, CBC and CMP ordered Subjective patient is a 31 year old at 39 0/7 weeks c/o of contractions since this AM. Denies LOF, vaginal bleeding. Noted good movements. Denies headache, BV< RUQ or epigastric pain. Noted to have elevated BP and 1+ protein at [facility] at [facility] yesterday Review of Systems Review of Systems: All systems reviewed & are unremarkable except as noted in HPI & below Physical Exam Constitutional: WD/WN, vitals as above Respiratory: normal respiratory effort, lungs clear to auscultation Cardiovascular: RRR, no murmur, no edema Gastrointestinal (Abdomen): normal bowel sounds, soft, nontender, no hepatosplenomegaly Genitourinary: no vaginal lesions, no adnexal mass normal external appearance OB Exam Abdomen: + fundal height, + heart tones, + vertex, + estimated weight and + regular contractions FHT: baseline 130, mod variability, +accels, no decles, cat 1 [place]: q 3 Cx: 3/50/-2 Results & Data ([facility]) Vital Signs (Past 12 Hours) Vital Signs Pulse BP 03/14/22 06:11 68 138/83 03/14/22 06:10 75 144/100 H 03/14/22 06:08 68 152/88 H
[2022-03-14] MEDS: LACTATED RINGER'S 1,000 ML IV PRN ×3 (06:33→10:56)
[2022-03-14 06:56] LABS: Hematocrit (blood only) 39.9 % (37-47); Hemoglobin 13.6 g/dL (12.0-16.0); Mean Corpuscular Hemoglobin 31.6 pg (25-34); Mean Corpuscular Hgb Conc 34.1 g/dL (32-36); Mean Corpuscular Volume 92.6 fL (80-100); Mean Platelet Volume 9.7 fL (7.4-10.4); Platelet Count 237 K/uL (130-400); RDW Standard Deviation 47.5 fL (36.4-46.3); Red Blood Count 4.31 M/uL (4.2-5.4); White Blood Count 12.62 K/uL (4.8-10.8)
[2022-03-14 07:13] LABS: Alanine Aminotransferase 13 U/L (7-52); Albumin Globulin Ratio 1.2 (0.9-2); Albumin Level 3.8 gm/dl (3.4-5.0); Alkaline Phosphatase 205 U/L (34-104); Anion Gap 11 (3-11); Aspartate Aminotransferase 15 U/L (13-39); BUN Creatinine Ratio 11.3 (10-20); Bilirubin,Total 0.4 mg/dl (0.2-1.0); Blood Urea Nitrogen 6 mg/dl (6-23); Calcium 9.3 mg/dl (8.5-10.1); Carbon Dioxide 20 mmol/L (21-32); Chloride 105 mmol/L (98-107); Est GFR (African American) 148.7 ml/min; Est GFR (Non-African American) 128.3 ml/min; Globulin 3.3 gm/dl (2.5-4.0); Glucose 95 mg/dl (70-99(Fasting)); Potassium 3.5 mmol/L (3.5-5.1); Sodium 136 mmol/L (136-145); Total Protein 7.1 gm/dl (6.0-8.3)
--- NOTE | 2022-03-14 07:13 | Anesthesiology Consultation ---
Date of Service March 14, 2022 Assessment & Plan (1) Encounter for pre-operative examination: Chart Review Chart Review: Acceptable Risk for Surgery and Patient NOT seen in Pre Admission Testing Consults Requested none History Allergies Allergy/AdvReac Type Severity Reaction Status Date / Time cephalexin Allergy Hives Verified 08/23/21 10:20 Penicillins Allergy Hives Verified 08/23/21 10:20 Sulfa (Sulfonamide Allergy Hives Verified 08/23/21 10:20 Antibiotics) Medications Home Medications Medication Instructions Recorded Confirmed Last Taken pantoprazole 40 mg tablet,delayed 40 mg PO HS 02/23/19 08/23/21 08/22/21 release (Protonix) vit no.95-ferrous 1 tab PO HS 08/23/21 08/23/21 08/22/21 fumarate 28 mg-folic acid 800 mcg tablet () venlafaxine 150 mg 150 mg PO HS 08/23/21 08/23/21 08/22/21 capsule,extended release 24 hr Active Medications Generic Name Dose Route Start Last Admin Trade Name Freq PRN Reason Stop Dose Admin Lactated Ringer's 1,000 mls @ 125 mls/hr 03/14/22 06:18 03/14/22 06:33 Lr IV 04/13/22 06:17 125 mls/hr .Q8H PRN Administration L&D Protocol Protocol Past Medical History Medical History Depression GERD (gastroesophageal reflux disease) Controlled with medicine IBS (irritable bowel syndrome) No significant past medical history Ostium secundum atrial septal defect history of as a baby. Has closed off since Asymptomatic Past Surgical History Surgical History H/O colonoscopy H/O esophagogastroduodenoscopy [place] teeth extracted Social History Smoking Status: Never smoker Hx Alcohol Use: Yes alcohol intake frequency: holidays/special occasions only Hx Substance Use: No Physical Exam Vital Signs Last Vital Signs Pulse 68 03/14/22 06:11 BP 138/83 03/14/22 06:11 Testing Laboratory Results 03/14/22 06:40
[2022-03-14] MEDS ORDERED: BUPIVACAINE 0.25% 30 ML VIAL ONE (07:15)
[2022-03-14] MEDS ORDERED: fentaNYL 2MCG/ML ROPIVACAINE 1.25MG/ML 100 ML BAG EPI ONE (07:15)
[2022-03-14] MEDS ORDERED: SODIUM CHLORIDE 0.9% INJ 10 ML VIAL ONE (07:15)
[2022-03-14] MEDS ORDERED: ePHEDrine sulfate 50 MG/ML AMP ONE (07:15)
[2022-03-14] MEDS ORDERED: fentaNYL citrate 100 MCG/2 ML VIAL ONE (07:15)
--- NOTE | 2022-03-14 07:15 | Labor Progress Brief Note ---
Date of Service March 14, 2022 Physical Exam Genitourinary: Manual OB Exam: + cervical dilation 5 cm, + cervical effacement 100% and + station -2 OB Exam Monitor Tracing: + external FHT monitor used, + external uterine monitor used, + category I and + normal FHT variability Will admit in labor. requesting epidural Results & Data ([facility]) Vital Signs (Past 12 Hours) Vital Signs Temp Pulse Resp BP 03/14/22 06:42 36.6 C 68 20 152/88 H 03/14/22 06:11 68 138/83 03/14/22 06:10 75 144/100 H 03/14/22 06:08 68 152/88 H
[2022-03-14 07:22] LABS: ALC (manual) 1.64 K/uL (1.2-3.4); ANC (manual) 10.42 K/uL (1.4-6.5); Basophils # (manual) 0.11 K/uL (0-0.2); Basophils % (manual) 0.9 %; Lymphocytes # (manual) 1.64 K/uL (1.2-3.4); Monocytes # (manual) 0.44 K/uL (0.11-0.59); Monocytes % (manual) 3.5 %; Neutrophils # (manual) 10.42 K/uL (1.4-6.5); Neutrophils % (manual) 82.6 %
[2022-03-14 07:32] LABS: Creatinine Urine Random 128.9 mg/dl; Protein Creatinine Ratio Urine 0.5 (0-0.2); Total Protein Urine Random 66.2 mg/dl (0-11.9)
[2022-03-14] MEDS ORDERED: NALBUPHINE HCL INJ 10 MG/ML AMP IV PRN (08:49)
[2022-03-14] MEDS ORDERED: ePHEDrine sulfate 50 MG/ML AMP IV PRN (08:49)
[2022-03-14] MEDS ORDERED: NALOXONE HCL 0.4 MG/1 ML VIAL/CARP IV PRN (08:49)
[2022-03-14] MEDS ORDERED: diphenhydrAMINE 50 MG/ML VIAL IV PRN (08:49)
[2022-03-14] MEDS ORDERED: NALOXONE HCL 1 MG in SODIUM CHLORIDE 0.9% 1000ML 1,000 ML IV PRN (08:49)
[2022-03-14] MEDS ORDERED: fentaNYL 2MCG/ML ROPIVACAINE 1.25MG/ML 100 ML BAG EPI PRN (08:49)
--- NOTE | 2022-03-14 09:45 | Labor Progress Brief Note ---
Date of Service March 14, 2022 Assessment & Plan Admission and Anticipated Discharge Date Admission Date: March 14, 2022 Physical Exam Genitourinary: Manual OB Exam: + cervical dilation 10 cm, + cervical effacement 100%, + station 0 and + amniotic fluid meconium OB Exam Monitor Tracing: + external FHT monitor used, + external uterine monitor used, + category I and + normal FHT variability AROM with Amni-hook meconium stained fluid noted Results & Data ([facility]) Vital Signs (Past 12 Hours) Vital Signs Temp Pulse Resp BP Pulse Ox 03/14/22 09:38 84 100 03/14/22 09:33 95 H 100 03/14/22 09:32 118/70 03/14/22 09:28 71 99 03/14/22 09:23 67 100 03/14/22 09:18 69 100 03/14/22 09:17 74 121/65 03/14/22 09:13 79 99 03/14/22 09:08 74 100 03/14/22 09:03 85 100 03/14/22 09:01 94 H 128/92 03/14/22 08:58 68 100 03/14/22 08:53 69 100 03/14/22 08:48 78 100 03/14/22 08:46 76 127/86 03/14/22 08:43 77 99 03/14/22 08:38 84 100 03/14/22 08:33 73 100 03/14/22 08:32 90 125/85 03/14/22 08:30 18 03/14/22 08:28 80 99 03/14/22 08:23 91 H 100 03/14/22 08:18 80 100 03/14/22 08:17 85 126/86 03/14/22 08:13 82 100 03/14/22 08:08 86 100 03/14/22 08:03 79 100 03/14/22 08:01 78 123/90 03/14/22 08:00 18 03/14/22 07:58 81 125/90 100 03/14/22 07:55 77 124/74 03/14/22 07:53 82 100 03/14/22 07:52 85 121/68 03/14/22 07:49 82 112/61 03/14/22 07:48 88 100 03/14/22 07:47 95 H 107/78 03/14/22 07:43 94 H 115/76 100 03/14/22 07:40 95 H 112/71 03/14/22 07:38 74 100 03/14/22 07:37 102 H 138/86 03/14/22 07:34 78 140/72 03/14/22 07:33 88 99 03/14/22 07:32 109 H 150/76 H 03/14/22 07:28 84 147/111 H 98 03/14/22 07:25 97 H 85 L 03/14/22 07:23 87 99 03/14/22 07:18 87 97 03/14/22 06:42 36.6 C 68 20 152/88 H 03/14/22 06:11 68 138/83 03/14/22 06:10 36.6 C 75 24 144/100 H 03/14/22 06:08 68 152/88 H
[2022-03-14] MEDS: OXYTOCIN 30 UNITS/500ML NSS ONE ×3 (10:12→11:42)
--- NOTE | 2022-03-14 10:25 | Delivery Summary ---
Vaginal Delivery Summary Date of Service March 14, 2022 Vaginal Delivery Summary Delivery Note live male over intact perineum with delayed cord clamping and Apgars 8/9 weight pending. Cord blood obtained followed by spontaneous delivery of intact meconium stained placenta. Abnormal insertion of 3VC and submitted to pathology. No tears. EBL 100 ml. Final sponge and instrument count are correct. Mom and baby stable.
--- NOTE | 2022-03-14 10:51 | Anesthesia Procedure Note ---
Date of Service March 14, 2022 Anesthesia Post Epidural Note Vital Signs Vital Signs: Temp Pulse Resp BP Pulse Ox 97.9 F 64 18 157/83 H 97 03/14/22 06:42 03/14/22 10:46 03/14/22 08:30 03/14/22 10:45 03/14/22 10:46 Notes Mental Status: alert / awake / arousable and participated in evaluation Nausea / Vomiting: adequately controlled Pain: adequately controlled Airway Patency, RR, SpO2: stable & adequate BP & HR: stable & adequate Hydration State: stable & adequate Neuraxial Anesthesia: was administered and sensory block is resolving Anesthetic Complications: no major complications apparent and Pt Satisfied with anesthetic care Epidural: Removed without complications and With tip intact
[2022-03-14] MEDS ORDERED: HYDROCORTISONE ACETATE 25 MG SUPP PR PRN (10:57)
[2022-03-14] MEDS ORDERED: OXYTOCIN 30 UNITS/500 ML BAG IV PRN (10:57)
[2022-03-14] MEDS ORDERED: BENZOCAINE 20% AER SPR 82.5 GM CAN EXT PRN (10:57)
[2022-03-14] MEDS ORDERED: DIPHTHERIA/TETANUS/PERTUSSIS 0.5 ML SYR/VIAL IM ONE (10:57)
[2022-03-14] MEDS ORDERED: bisacodyL 10 MG SUPP PR PRN (10:57)
[2022-03-14] MEDS ORDERED: IBUPROFEN 600 MG TAB PO PRN (10:57)
[2022-03-14] MEDS ORDERED: ACETAMINOPHEN 325 MG TAB PO PRN (10:57)
[2022-03-14] MEDS ORDERED: ACETAMINOPHEN 1000 MG/100 ML IV IV ONE ×2 (11:54→11:55)
--- NOTE | 2022-03-14 11:54 | Communication Note ---
Date of Service: March 14, 2022 called to bedside to evaluate patient due to nausea/vomiting and headache as well as hypothermia. Patient states headache started after delivery, bilateral/t hrobbing nature with photophobia. Denies significant back pain, saddle anesthesia, neurological issues with lower extremities. Patient reports improvement of headache in seated position, and worsening in supine position. BP noted to be extremely elevated at 217/105 during evaluation. Given supine position lead to significant worsening of headache, unlikely spinal headache is sole cause, however cannot rule out. Educated patient who wants to attempt conservative measures including IVF/tylenol/caffeine, as well as blood pressure management which may be playing role.
[2022-03-14] MEDS ORDERED: LACTATED RINGER'S 500 ML IV ONE (11:55)
[2022-03-14] MEDS ORDERED: ONDANSETRON INJ 2 MG/ML 2 ML VIAL ONE (11:55)
[2022-03-14] MEDS ORDERED: MAGNESIUM SULFATE IV ONE (11:58)
[2022-03-14] MEDS ORDERED: LABETALOL HCL IV 5 MG/ML 20ML IV ONE (11:59)
[2022-03-14] MEDS ORDERED: ONDANSETRON INJ 2 MG/ML 2 ML VIAL IV PRN (12:02)
[2022-03-14] MEDS ORDERED: CAFFEINE CITRATE 500 MG in SODIUM CHLORIDE 0.9% 1000ML 1,000 ML IV STA (12:04)
[2022-03-14] MEDS: MAGNESIUM SULFATE 40GM / WTR 1,000 ML BAG IV ONE ×3 (12:13→13:40)
[2022-03-14 13:14] LABS: Basophils # (auto) 0.01 K/uL (0-0.2); Eosinophils # (auto) 0.01 K/uL (0-0.5); Immature Granulocytes # (auto) 0.15 K/uL (0.00-0.02); Immature Granulocytes % (auto) 0.7 %; Lymphocytes # (auto) 1.15 K/uL (1.2-3.4); Lymphocytes % (auto) 5.6 %; Mean Corpuscular Hemoglobin 31.8 pg (25-34); Mean Corpuscular Hgb Conc 34.1 g/dL (32-36); Mean Corpuscular Volume 93.4 fL (80-100); Monocytes # (auto) 0.37 K/uL (0.11-0.59); Monocytes % (auto) 1.8 %; Neutrophils # (auto) 18.83 K/uL (1.4-6.5); Neutrophils % (auto) 91.9 %; Platelet Count 276 K/uL (130-400); RDW Standard Deviation 47.2 fL (36.4-46.3); Red Blood Count 4.71 M/uL (4.2-5.4); White Blood Count 20.52 K/uL (4.8-10.8)
--- NOTE | 2022-03-14 13:33 | Progress Note ---
Date of Service March 14, 2022 Assessment & Plan (1) Pre-eclampsia, severe, delivered with condition: Plan: Magnesium sulfate started, Labetalol 10 mg IV, repeat labs Admission and Anticipated Discharge Date Admission Date: March 14, 2022 Subjective I was called to see patient who developed severe headache and elevated BP after an uncomplicated vaginal delivery. BP in severe range with persistent headache. Physical Exam Constitutional: WD/WN, vitals as above Results & Data ([facility]) Vital Signs (Past 12 Hours) Vital Signs Temp Pulse Resp BP Pulse Ox 03/14/22 13:27 54 L 98 03/14/22 13:25 53 L 161/76 H 03/14/22 13:22 58 L 98 03/14/22 13:17 53 L 98 03/14/22 13:12 55 L 98 03/14/22 13:07 56 L 98 03/14/22 13:06 57 L 145/71 H 03/14/22 13:02 56 L 97 03/14/22 13:01 71 144/71 H 03/14/22 12:57 51 L 100 03/14/22 12:56 59 L 151/72 H 03/14/22 12:53 34.5 C L 52 L 152/72 H 03/14/22 12:52 51 L 99 03/14/22 12:47 53 L 99 03/14/22 12:45 80 20 93 03/14/22 12:42 54 L 99 03/14/22 12:41 52 L 169/80 H 03/14/22 12:37 53 L 98 03/14/22 12:36 52 L 161/87 H 03/14/22 12:32 46 L 100 03/14/22 12:31 51 L 155/80 H 03/14/22 12:27 45 L 168/70 H 97 03/14/22 12:26 82 90 03/14/22 12:21 53 L 145/65 H 03/14/22 12:19 51 L 125/57 L 93 03/14/22 12:17 52 L 99 03/14/22 12:16 34.1 C L 03/14/22 12:15 56 L 120/56 L 03/14/22 12:13 62 125/60 91 03/14/22 12:12 65 100 03/14/22 12:09 63 192/108 H 03/14/22 12:07 70 88 L 03/14/22 12:04 64 88 L 03/14/22 12:01 64 214/110 H 98 03/14/22 11:59 62 213/105 H 03/14/22 11:56 64 98 03/14/22 11:54 63 227/104 H 03/14/22 11:51 65 221/105 H 99 03/14/22 11:47 62 217/105 H 03/14/22 11:46 60 22 97 03/14/22 11:41 65 99 03/14/22 11:36 59 L 98 03/14/22 11:32 59 L 205/96 H 03/14/22 11:31 58 L 97 03/14/22 11:26 57 L 98 03/14/22 11:23 29 L 174/82 H 03/14/22 11:21 57 L 98 03/14/22 11:19 24 03/14/22 11:16 68 177/91 H 98 03/14/22 11:15 24 03/14/22 11:11 58 L 99 03/14/22 11:10 60 192/94 H 03/14/22 11:06 60 99 03/14/22 11:02 59 L 196/95 H 03/14/22 11:01 59 L 98 03/14/22 11:00 24 03/14/22 10:56 61 99 03/14/22 10:51 57 L 178/90 H 99 03/14/22 10:46 64 97 03/14/22 10:45 65 24 157/83 H 03/14/22 10:41 70 100 03/14/22 10:36 74 99 03/14/22 10:32 70 145/76 H 03/14/22 10:31 75 96 03/14/22 10:30 28 H 03/14/22 10:26 82 99 03/14/22 10:25 73 151/83 H 03/14/22 10:21 82 98 03/14/22 10:19 72 141/74 H 03/14/22 10:16 76 92 03/14/22 10:14 80 171/75 H 03/14/22 10:11 77 93 03/14/22 10:10 82 93 03/14/22 10:05 89 92 03/14/22 10:03 88 148/95 H 03/14/22 10:00 78 95 05 09:57 85 93 05 09:53 74 99 05 09:48 68 151/85 H 100 05 09:43 89 99 05 09:38 84 100 03/14/22 09:33 95 H 100 03/14/22 09:32 118/70 05 09:28 71 99 03/14/22 09:23 67 100 03/14/22 09:18 69 100 05 09:17 74 121/65 05 09:13 79 99 05 09:08 74 100 03/14/22 09:03 85 100 03/14/22 09:01 94 H 128/92 03/14/22 08:58 68 100 03/14/22 08:53 69 100 03/14/22 08:48 78 100 03/14/22 08:46 76 127/86 03/14/22 08:43 77 99 03/14/22 08:38 84 100 03/14/22 08:33 73 100 03/14/22 08:32 90 125/85 03/14/22 08:30 18 03/14/22 08:28 80 99 03/14/22 08:23 91 H 100 03/14/22 08:18 80 100 03/14/22 08:17 85 126/86 03/14/22 08:13 82 100 03/14/22 08:08 86 100 03/14/22 08:03 79 100 03/14/22 08:01 78 123/90 05 08:00 18 03/14/22 07:58 81 125/90 100 03/14/22 07:55 77 124/74 05 07:53 82 100 05 07:52 85 121/68 05 07:49 82 112/61 05 07:48 88 100 05 07:47 95 H 107/78 05 07:43 94 H 115/76 100 05 07:40 95 H 112/71 05 07:38 74 100 05 07:37 102 H 138/86 05 07:34 78 140/72 03/14/22 07:33 88 99 03/14/22 07:32 109 H 150/76 H 03/14/22 07:28 84 147/111 H 98 03/14/22 07:25 97 H 85 L 03/14/22 07:23 87 99 03/14/22 07:18 87 97 03/14/22 06:42 36.6 C 68 20 152/88 H 03/14/22 06:11 68 138/83 03/14/22 06:10 36.6 C 75 24 144/100 H 03/14/22 06:08 68 152/88 H Laboratory Results 03/14/22 03/14/22 03/14/22 06:40 06:40 06:45 WBC 12.62 H RBC 4.31 Hgb 13.6 Hct 39.9 MCV 92.6 MCH 31.6 MCHC 34.1 RDW Std Deviation 47.5 H RDW Coeff of [place] 14.0 Plt Count 237 MPV 9.7 Immature Gran % (Auto) Neut % (Auto) Lymph % (Auto) [place] % (Auto) Eos % (Auto) Baso % (Auto) Neut # (Auto) Lymph # (Auto) [place] # (Auto) Eos # (Auto) Baso # (Auto) Immature Gran # (Auto) Neutrophils % (Manual) 82.6 Lymphocytes % (Manual) 13.0 Monocytes % (Manual) 3.5 Basophils % (Manual) 0.9 Neutrophils # (Manual) 10.42 H Total Absolute Neuts 10.42 H Lymphocytes # (Manual) 1.64 Total Abs Lymphocytes 1.64 Monocytes # (Manual) 0.44 Basophils # (Manual) 0.11 Sodium 136 Potassium 3.5 Chloride 105 Carbon Dioxide 20 L Anion Gap 11 BUN 6 Creatinine 0.53 L Est Cr Clr Drug Dosing Not Reportable Est GFR ( Amer) 148.7 Est GFR (Non-Af Amer) 128.3 BUN/Creatinine Ratio 11.3 Glucose 95 POC Glucose Calcium 9.3 Total Bilirubin 0.4 AST 15 ALT 13 Alkaline Phosphatase 205 H Total Protein 7.1 Albumin 3.8 Globulin 3.3 Albumin/Globulin Ratio 1.2 Ur Random Creatinine U Random Total Protein Protein/Creatinin Ratio SARS-CoV-2, RNA, NAAT NEGATIVE 03/14/22 03/14/22 03/14/22 06:55 11:37 12:43 WBC 20.52 H RBC 4.71 Hgb 15.0 Hct 44.0 MCV 93.4 MCH 31.8 MCHC 34.1 RDW Std Deviation 47.2 H RDW Coeff of [place] 14.0 Plt Count 276 MPV 10.0 Immature Gran % (Auto) 0.7 Neut % (Auto) 91.9 Lymph % (Auto) 5.6 [place] % (Auto) 1.8 Eos % (Auto) 0.0 Baso % (Auto) 0.0 Neut # (Auto) 18.83 H Lymph # (Auto) 1.15 L [place] # (Auto) 0.37 Eos # (Auto) 0.01 Baso # (Auto) 0.01 Immature Gran # (Auto) 0.15 H Neutrophils % (Manual) Lymphocytes % (Manual) Monocytes % (Manual) Basophils % (Manual) Neutrophils # (Manual) Total Absolute Neuts Lymphocytes # (Manual) Total Abs Lymphocytes Monocytes # (Manual) Basophils # (Manual) Sodium Potassium Chloride Carbon Dioxide Anion Gap BUN Creatinine Est Cr Clr Drug Dosing Est GFR ( Amer) Est GFR (Non-Af Amer) BUN/Creatinine Ratio Glucose POC Glucose 115 H Calcium Total Bilirubin AST ALT Alkaline Phosphatase Total Protein Albumin Globulin Albumin/Globulin Ratio Ur Random Creatinine 128.9 U Random Total Protein 66.2 H Protein/Creatinin Ratio 0.5 H SARS-CoV-2, RNA, NAAT
[2022-03-14 13:35] LABS: Alanine Aminotransferase 15 U/L (7-52); Albumin Globulin Ratio 1.1 (0.9-2); Albumin Level 3.5 gm/dl (3.4-5.0); Alkaline Phosphatase 206 U/L (34-104); Anion Gap 12 (3-11); Aspartate Aminotransferase 21 U/L (13-39); BUN Creatinine Ratio 15.6 (10-20); Bilirubin Direct 0.1 mg/dl (0-0.2); Bilirubin,Total 0.5 mg/dl (0.2-1.0); Blood Urea Nitrogen 7 mg/dl (6-23); Calcium 8.9 mg/dl (8.5-10.1); Carbon Dioxide 17 mmol/L (21-32); Chloride 105 mmol/L (98-107); Creatinine Clr Calc Pharmacy 222.4 ml/min; Est GFR (African American) > 150.0 ml/min; Est GFR (Non-African American) 135.4 ml/min; Globulin 3.3 gm/dl (2.5-4.0); Glucose 129 mg/dl (70-99(Fasting)); Potassium 3.4 mmol/L (3.5-5.1); Sodium 134 mmol/L (136-145); Total Protein 6.8 gm/dl (6.0-8.3)
[2022-03-14] MEDS: LACTATED RINGER'S 1,000 ML IV SCH ×2 (13:42→23:02)
[2022-03-14] MEDS ORDERED: Nursing to Pharmacy Communication SCH (14:00)
[2022-03-14] MEDS ORDERED: LABETALOL HCL 100 MG TAB PO ONE (14:08)
[2022-03-14 19:56] LABS: Basophils # (auto) 0.01 K/uL (0-0.2); Hematocrit (blood only) 43.6 % (37-47); Hemoglobin 15.2 g/dL (12.0-16.0); Immature Granulocytes # (auto) 0.16 K/uL (0.00-0.02); Immature Granulocytes % (auto) 0.7 %; Lymphocytes # (auto) 1.02 K/uL (1.2-3.4); Lymphocytes % (auto) 4.8 %; Mean Corpuscular Hemoglobin 32.5 pg (25-34); Mean Corpuscular Volume 93.2 fL (80-100); Mean Platelet Volume 9.7 fL (7.4-10.4); Monocytes % (auto) 1.9 %; Neutrophils # (auto) 19.78 K/uL (1.4-6.5); Neutrophils % (auto) 92.6 %; Platelet Count 310 K/uL (130-400); RDW Coefficient of Variation 14.1 % (11.5-14.5); RDW Standard Deviation 47.5 fL (36.4-46.3); Red Blood Count 4.68 M/uL (4.2-5.4); White Blood Count 21.37 K/uL (4.8-10.8)
[2022-03-14 20:02] LABS: Mean Corpuscular Hgb Conc 34.9 g/dL (32-36)
[2022-03-14] MEDS ORDERED: RAPID SEQUENCE INDUCTION BAG ONE (20:28)
[2022-03-14] MEDS ORDERED: levETIRAcetam 1,000 MG in 0.9 % SODIUM CHLORIDE 100 ML IV STA (20:29)
[2022-03-14] MEDS ORDERED: PROPOFOL IV EMULSION 10 MG/ML 100 ML VIAL IV ONE (20:35)
--- NOTE | 2022-03-14 20:59 | Procedure Note ---
Procedure Note Date of Service March 14, 2022 Note Intubation -- performed by myself Indication airway protection, altered mental status, & eclampsia. The patient was on 100% oxygen via NRB prior to the procedure. Suction, airway equipment, RSI drugs, respiratory equipment, and appropriate personnel were prepared prior to the initiation of the procedure. Induction was performed with 150mg of ketamine and paralysis with 150 mg of succinylcholine. After observing the clinical benefit of the medications, the airway was visualized utilizing a #3 glidescope with clear secretions in the airway. A 7.5 size ETT tube was placed atraumatically to 25 cm using standard technique. The cuff inflated without signs of malfunction. There were bilateral breath sounds, positive colormetric change, and no gastric sounds. Post intubation sedation and paralysis was administered using propofol drip. There were no obvious complications. Post intubation x-ray was ordered with deep tube placement in the R main stem and the ET tube was retracted some. Further care by the obstetrical and medical team at bedside. Coding
[2022-03-14] MEDS ORDERED: VENLAFAXINE HCL 50 MG TAB PO SCH (21:00)
[2022-03-14] MEDS ORDERED: VENLAFAXINE HCL 37.5 MG TAB PO SCH (21:00)
[2022-03-14] MEDS ORDERED: NON-FORMULARY MEDICATION (Pnv Cmb#95-Ferrous Fumarate-Fa [Prenatal] 28 mg iron- 800 mcg Ta PO SCH (21:00)
[2022-03-14] MEDS ORDERED: VENLAFAXINE HCL XR 150 MG CAPXR PO SCH (21:00)
[2022-03-14] MEDS ORDERED: PANTOprazole 40 MG TAB PO SCH (21:00)
[2022-03-14] MEDS ORDERED: LABETALOL HCL 100 MG TAB PO SCH (21:00)
[2022-03-14] MEDS ORDERED: VENLAFAXINE HCL XR 37.5 MG CAPXR PO SCH ×2 (21:00)
[2022-03-14] MEDS ORDERED: DOCUSATE SODIUM 100 MG CAP PO SCH (21:00)
[2022-03-14 21:14] LABS: INR 0.9 (0.9-1.1); Partial Thromboplastin Ratio 1.1; Partial Thromboplastin Time 30.8 Seconds (21.0-31.0); Prothrombin Time 9.6 Seconds (9.0-12.0)
[2022-03-14 21:20] LABS: Appearance Urine Clear (Clear); Bacteria Urine Automated Negative (Negative); Bilirubin Urine Negative (Negative); Blood Urine 1+ (Negative); Color Urine Yellow; Glucose Urine UA 1+ (Negative); Ketones Urine 2+ (Negative); Leukocyte Esterase Urine Negative (Negative); Nitrite Urine Negative (Negative); Protein Urine 1+ (Negative); Specific Gravity Urine 1.011 (1.000-1.030); Urobilinogen Urine Negative (Negative); pH Urine 5.5 (4.5-7.5)
--- NOTE | 2022-03-14 21:20 | XRay Report ---
XR chest 1V portable CLINICAL HISTORY: Check tube placement, post seizure + intubation TECHNIQUE: Single frontal radiograph of the chest was obtained. Comparison: None available at the time of this dictation. FINDINGS: In the final image, the endotracheal tube terminates 35 mm from the galina. The cardiomediastinal ann houette is normal. Airspace opacity is in the left upper lobe. No evidence of pleural effusion or pne umothorax. IMPRESSION: 1. Satisfactory position of endotracheal tube. 2. Airspace opacity in the left upper lung may represent aspiration, pneumonia, or atelectasis. ACT 112: Negative or not required by law. Electronically signed by: Tulio Lilly M.D. 03/14/2022 9:17 PM
[2022-03-14] MEDS ORDERED: SODIUM CHLORIDE 3 % 50 ML IV ONE (21:27)
[2022-03-14] MEDS ORDERED: STAT IV Infusion **Titration per Protocol STA ×3 (21:29→22:15)
--- NOTE | 2022-03-14 21:29 | Obstetrical Progress Note ---
Date of Service March 14, 2022 Subjective Called by nurse who witnessed seizure post . Patient became unresponsive and [employer] called. Patient intubated by ER doc and stabilized by medicine. She was the transferred to ICU for ventilator support and management. Magnesium to be continued. Physical Exam Constitutional WD/WN, vitals as above Results & Data ([facility]) Vital Signs (Past 12 Hours) Vital Signs Temp Pulse Resp BP Pulse Ox 03/14/22 21:07 118 H 118/55 L 03/14/22 21:04 122 H 118/55 L 03/14/22 21:01 122 H 119/58 L 03/14/22 20:58 133 H 132/58 L 03/14/22 20:55 139 H 134/58 L 03/14/22 20:52 134 H 138/56 L 03/14/22 20:49 125 H 146/64 H 03/14/22 20:46 99 H 154/73 H 03/14/22 20:41 126 H 183/82 H 03/14/22 20:14 22 03/14/22 20:12 110 H 98 03/14/22 20:07 107 H 96 03/14/22 20:02 98 H 98 03/14/22 19:59 115 H 154/93 H 03/14/22 19:57 109 H 96 03/14/22 19:52 120 H 98 03/14/22 19:47 127 H 97 03/14/22 19:42 119 H 99 03/14/22 19:37 120 H 98 03/14/22 19:32 124 H 100 03/14/22 19:29 115 H 138/90 03/14/22 19:27 114 H 98 03/14/22 19:22 111 H 97 03/14/22 19:17 108 H 99 03/14/22 19:12 111 H 98 03/14/22 19:11 36.4 C L 20 03/14/22 19:09 115 H 148/86 H 03/14/22 19:07 112 H 96 03/14/22 19:02 111 H 98 03/14/22 18:59 106 H 184/100 H 03/14/22 18:57 102 H 97 03/14/22 18:52 128 H 98 03/14/22 18:47 101 H 99 03/14/22 18:42 105 H 98 03/14/22 18:37 102 H 98 03/14/22 18:32 88 98 03/14/22 18:29 99 H 174/96 H 03/14/22 18:27 100 H 98 03/14/22 18:22 99 H 98 03/14/22 18:17 103 H 99 03/14/22 18:12 96 H 98 03/14/22 18:07 92 H 99 03/14/22 18:02 94 H 100 03/14/22 18:00 20 03/14/22 17:59 112 H 136/94 03/14/22 17:57 100 H 97 03/14/22 17:52 98 H 98 03/14/22 17:47 90 99 03/14/22 17:42 100 H 97 03/14/22 17:37 98 H 99 03/14/22 17:32 102 H 99 03/14/22 17:29 103 H 161/91 H 03/14/22 17:27 95 H 98 03/14/22 17:22 100 H 98 03/14/22 17:17 89 98 03/14/22 17:15 20 03/14/22 17:12 105 H 99 03/14/22 17:07 112 H 98 03/14/22 17:02 114 H 100 03/14/22 16:59 108 H 140/92 03/14/22 16:57 84 98 03/14/22 16:52 89 98 03/14/22 16:47 97 H 98 03/14/22 16:42 96 H 97 03/14/22 16:37 99 H 97 03/14/22 16:32 99 H 97 03/14/22 16:29 110 H 130/90 03/14/22 16:27 95 H 97 03/14/22 16:22 95 H 96 03/14/22 16:17 92 H 98 03/14/22 16:13 90 85 L 03/14/22 16:12 88 97 03/14/22 16:07 104 H 99 03/14/22 16:05 36.4 C L 20 03/14/22 16:02 95 H 99 03/14/22 15:59 20 03/14/22 15:58 113 H 147/90 H 03/14/22 15:57 113 H 99 03/14/22 15:52 99 H 98 03/14/22 15:47 86 98 03/14/22 15:42 85 98 03/14/22 15:37 114 H 98 03/14/22 15:32 86 98 03/14/22 15:27 69 99 03/14/22 15:24 113 H 90 03/14/22 15:22 76 97 03/14/22 15:17 72 98 03/14/22 15:12 68 96 03/14/22 15:08 97 H 191/111 H 03/14/22 15:07 94 H 96 03/14/22 15:02 73 98 03/14/22 14:57 77 98 03/14/22 14:52 77 99 03/14/22 14:47 61 98 03/14/22 14:42 101 H 98 03/14/22 14:37 62 159/91 H 98 03/14/22 14:32 57 L 98 03/14/22 14:22 86 153/98 H 97 03/14/22 14:19 69 87 L 03/14/22 14:17 68 98 03/14/22 14:13 78 147/84 H 90 03/14/22 14:12 96 H 95 03/14/22 14:07 61 94 03/14/22 14:03 78 90 03/14/22 14:02 62 95 03/14/22 13:57 62 97 03/14/22 13:53 90 90 03/14/22 13:52 59 L 151/88 H 94 03/14/22 13:47 61 95 03/14/22 13:46 65 94 03/14/22 13:42 55 L 95 03/14/22 13:37 58 L 158/87 H 98 03/14/22 13:32 58 L 98 03/14/22 13:27 54 L 98 03/14/22 13:25 53 L 161/76 H 03/14/22 13:22 58 L 98 03/14/22 13:17 53 L 98 03/14/22 13:12 55 L 98 03/14/22 13:07 56 L 98 03/14/22 13:06 57 L 145/71 H 03/14/22 13:02 56 L 97 03/14/22 13:01 71 144/71 H 03/14/22 12:57 51 L 100 03/14/22 12:56 59 L 151/72 H 03/14/22 12:53 34.5 C L 52 L 152/72 H 03/14/22 12:52 51 L 99 03/14/22 12:47 53 L 99 03/14/22 12:45 80 20 93 03/14/22 12:42 54 L 99 03/14/22 12:41 52 L 169/80 H 03/14/22 12:37 53 L 98 03/14/22 12:36 52 L 161/87 H 03/14/22 12:32 46 L 100 03/14/22 12:31 51 L 155/80 H 03/14/22 12:27 45 L 168/70 H 97 03/14/22 12:26 82 90 03/14/22 12:21 53 L 145/65 H 03/14/22 12:19 51 L 125/57 L 93 03/14/22 12:17 52 L 99 03/14/22 12:16 34.1 C L 03/14/22 12:15 56 L 120/56 L 03/14/22 12:13 62 125/60 91 03/14/22 12:12 65 100 03/14/22 12:09 63 192/108 H 03/14/22 12:07 70 88 L 03/14/22 12:04 64 88 L 03/14/22 12:01 64 214/110 H 98 03/14/22 11:59 62 213/105 H 03/14/22 11:56 64 98 03/14/22 11:54 63 227/104 H 03/14/22 11:51 65 221/105 H 99 03/14/22 11:47 62 217/105 H 03/14/22 11:46 60 22 97 03/14/22 11:41 65 99 03/14/22 11:36 59 L 98 03/14/22 11:32 59 L 205/96 H 03/14/22 11:31 58 L 97 03/14/22 11:26 57 L 98 03/14/22 11:23 29 L 174/82 H 03/14/22 11:21 57 L 98 03/14/22 11:19 24 03/14/22 11:16 68 177/91 H 98 03/14/22 11:15 24 03/14/22 11:11 58 L 99 03/14/22 11:10 60 192/94 H 03/14/22 11:06 60 99 03/14/22 11:02 59 L 196/95 H 03/14/22 11:01 59 L 98 03/14/22 11:00 24 03/14/22 10:56 61 99 03/14/22 10:51 57 L 178/90 H 99 03/14/22 10:46 64 97 03/14/22 10:45 65 24 157/83 H 03/14/22 10:41 70 100 03/14/22 10:36 74 99 03/14/22 10:32 70 145/76 H 03/14/22 10:31 75 96 03/14/22 10:30 28 H 03/14/22 10:26 82 99 03/14/22 10:25 73 151/83 H 03/14/22 10:21 82 98 03/14/22 10:19 72 141/74 H 03/14/22 10:16 76 92 03/14/22 10:14 80 171/75 H 03/14/22 10:11 77 93 03/14/22 10:10 82 93 03/14/22 10:05 89 92 03/14/22 10:03 88 148/95 H 03/14/22 10:00 78 95 03/14/22 09:57 85 93 03/14/22 09:53 74 99 03/14/22 09:48 68 151/85 H 100 03/14/22 09:43 89 99 03/14/22 09:38 84 100 03/14/22 09:33 95 H 100 03/14/22 09:32 118/70 03/14/22 09:28 71 99 Laboratory Results 03/14/22 03/14/22 03/14/22 06:40 06:40 06:45 WBC 12.62 H RBC 4.31 Hgb 13.6 Hct 39.9 MCV 92.6 MCH 31.6 MCHC 34.1 RDW Std Deviation 47.5 H RDW Coeff of Sultana 14.0 Plt Count 237 MPV 9.7 Immature Gran % (Auto) Neut % (Auto) Lymph % (Auto) [place] % (Auto) Eos % (Auto) Baso % (Auto) Neut # (Auto) Lymph # (Auto) [place] # (Auto) Eos # (Auto) Baso # (Auto) Immature Gran # (Auto) Neutrophils % (Manual) 82.6 Lymphocytes % (Manual) 13.0 Monocytes % (Manual) 3.5 Basophils % (Manual) 0.9 Neutrophils # (Manual) 10.42 H Total Absolute Neuts 10.42 H Lymphocytes # (Manual) 1.64 Total Abs Lymphocytes 1.64 Monocytes # (Manual) 0.44 Basophils # (Manual) 0.11 PT INR APTT PTT Ratio Sodium 136 Potassium 3.5 Chloride 105 Carbon Dioxide 20 L Anion Gap 11 BUN 6 Creatinine 0.53 L Est Cr Clr Drug Dosing Not Reportable Est GFR ( Amer) 148.7 Est GFR (Non-Af Amer) 128.3 BUN/Creatinine Ratio 11.3 Glucose 95 POC Glucose Uric Acid Calcium 9.3 Magnesium (Sulf Ther) Total Bilirubin 0.4 Direct Bilirubin AST 15 ALT 13 Alkaline Phosphatase 205 H Lactate Dehydrogenase Total Protein 7.1 Albumin 3.8 Globulin 3.3 Albumin/Globulin Ratio 1.2 Urine Color Urine Appearance Urine pH Ur Specific [place] Urine Protein Urine Glucose (UA) Urine Ketones Urine Blood Urine Nitrite Urine Bilirubin Urine Urobilinogen Ur Leukocyte Esterase Urine WBC (Auto) Urine RBC (Auto) U Hyaline Cast (Auto) U Epithel Cells (Auto) Urine Bacteria (Auto) Ur Random Creatinine U Random Total Protein Protein/Creatinin Ratio SARS-CoV-2, RNA, NAAT NEGATIVE 03/14/22 03/14/22 03/14/22 06:55 11:37 12:43 WBC 20.52 H RBC 4.71 Hgb 15.0 Hct 44.0 MCV 93.4 MCH 31.8 MCHC 34.1 RDW Std Deviation 47.2 H RDW Coeff of S[place]ana 14.0 Plt Count 276 MPV 10.0 Immature Gran % (Auto) 0.7 Neut % (Auto) 91.9 Lymph % (Auto) 5.6 [place] % (Auto) 1.8 Eos % (Auto) 0.0 Baso % (Auto) 0.0 Neut # (Auto) 18.83 H Lymph # (Auto) 1.15 L [place] # (Auto) 0.37 Eos # (Auto) 0.01 Baso # (Auto) 0.01 Immature Gran # (Auto) 0.15 H Neutrophils % (Manual) Lymphocytes % (Manual) Monocytes % (Manual) Basophils % (Manual) Neutrophils # (Manual) Total Absolute Neuts Lymphocytes # (Manual) Total Abs Lymphocytes Monocytes # (Manual) Basophils # (Manual) PT INR APTT PTT Ratio Sodium Potassium Chloride Carbon Dioxide Anion Gap BUN Creatinine Est Cr Clr Drug Dosing Est GFR ( Amer) Est GFR (Non-Af Amer) BUN/Creatinine Ratio Glucose POC Glucose 115 H Uric Acid Calcium Magnesium (Sulf Ther) Total Bilirubin Direct Bilirubin AST ALT Alkaline Phosphatase Lactate Dehydrogenase Total Protein Albumin Globulin Albumin/Globulin Ratio Urine Color Urine Appearance Urine pH Ur Specific [place] Urine Protein Urine Glucose (UA) Urine Ketones Urine Blood Urine Nitrite Urine Bilirubin Urine Urobilinogen Ur Leukocyte Esterase Urine WBC (Auto) Urine RBC (Auto) U Hyaline Cast (Auto) U Epithel Cells (Auto) Urine Bacteria (Auto) Ur Random Creatinine 128.9 U Random Total Protein 66.2 H Protein/Creatinin Ratio 0.5 H SARS-CoV-2, RNA, NAAT 03/14/22 03/14/22 03/14/22 12:43 12:43 19:31 WBC 21.37 H RBC 4.68 Hgb 15.2 Hct 43.6 MCV 93.2 MCH 32.5 MCHC 34.9 RDW Std Deviation 47.5 H RDW Coeff of [place] 14.1 Plt Count 310 MPV 9.7 Immature Gran % (Auto) 0.7 Neut % (Auto) 92.6 Lymph % (Auto) 4.8 [place] % (Auto) 1.9 Eos % (Auto) 0.0 Baso % (Auto) 0.0 Neut # (Auto) 19.78 H Lymph # (Auto) 1.02 L [place] # (Auto) 0.40 Eos # (Auto) 0.00 Baso # (Auto) 0.01 Immature Gran # (Auto) 0.16 H Neutrophils % (Manual) Lymphocytes % (Manual) Monocytes % (Manual) Basophils % (Manual) Neutrophils # (Manual) Total Absolute Neuts Lymphocytes # (Manual) Total Abs Lymphocytes Monocytes # (Manual) Basophils # (Manual) PT INR APTT PTT Ratio Sodium 134 L Potassium 3.4 L Chloride 105 Carbon Dioxide 17 L Anion Gap 12 H BUN 7 Creatinine 0.45 L Est Cr Clr Drug Dosing 222.4 Est GFR ( Amer) > 150.0 Est GFR (Non-Af Amer) 135.4 BUN/Creatinine Ratio 15.6 Glucose 129 H POC Glucose Uric Acid 5.0 Calcium 8.9 Magnesium (Sulf Ther) Total Bilirubin 0.5 Direct Bilirubin 0.1 AST 21 ALT 15 Alkaline Phosphatase 206 H Lactate Dehydrogenase 187 Total Protein 6.8 Albumin 3.5 Globulin 3.3 Albumin/Globulin Ratio 1.1 Urine Color Urine Appearance Urine pH Ur Specific [place] Urine Protein Urine Glucose (UA) Urine Ketones Urine Blood Urine Nitrite Urine Bilirubin Urine Urobilinogen Ur Leukocyte Esterase Urine WBC (Auto) Urine RBC (Auto) U Hyaline Cast (Auto) U Epithel Cells (Auto) Urine Bacteria (Auto) Ur Random Creatinine U Random Total Protein Protein/Creatinin Ratio SARS-CoV-2, RNA, NAAT 03/14/22 03/14/22 03/14/22 19:31 20:50 21:00 WBC RBC Hgb Hct MCV MCH MCHC RDW Std Deviation RDW Coeff of [place] Plt Count MPV Immature Gran % (Auto) Neut % (Auto) Lymph % (Auto) [place] % (Auto) Eos % (Auto) Baso % (Auto) Neut # (Auto) Lymph # (Auto) [place] # (Auto) Eos # (Auto) Baso # (Auto) Immature Gran # (Auto) Neutrophils % (Manual) Lymphocytes % (Manual) Monocytes % (Manual) Basophils % (Manual) Neutrophils # (Manual) Total Absolute Neuts Lymphocytes # (Manual) Total Abs Lymphocytes Monocytes # (Manual) Basophils # (Manual) PT 9.6 INR 0.9 APTT 30.8 PTT Ratio 1.1 Sodium Potassium Chloride Carbon Dioxide Anion Gap BUN Creatinine Est Cr Clr Drug Dosing Est GFR ( Amer) Est GFR (Non-Af Amer) BUN/Creatinine Ratio Glucose POC Glucose Uric Acid Calcium Magnesium (Sulf Ther) 4.7 Total Bilirubin Direct Bilirubin AST ALT Alkaline Phosphatase Lactate Dehydrogenase Total Protein Albumin Globulin Albumin/Globulin Ratio Urine Color Yellow Urine Appearance Clear Urine pH 5.5 Ur Specific [place] 1.011 Urine Protein 1+ H Urine Glucose (UA) 1+ H Urine Ketones 2+ H Urine Blood 1+ H Urine Nitrite Negative Urine Bilirubin Negative Urine Urobilinogen Negative Ur Leukocyte Esterase Negative Urine WBC (Auto) 1-5 Urine RBC (Auto) 5-10 H U Hyaline Cast (Auto) 5-10 H U Epithel Cells (Auto) 10-20 H Urine Bacteria (Auto) Negative Ur Random Creatinine U Random Total Protein Protein/Creatinin Ratio SARS-CoV-2, RNA, NAAT
[2022-03-14] MEDS ORDERED: SODIUM CHLORIDE 3 % 500 ML IV SCH (21:30)
[2022-03-14] MEDS ORDERED: niCARdipine 25 MG in SODIUM CHLORIDE 0.9% 240 ML IV SCH (21:30)
[2022-03-14] MEDS ORDERED: PROPOFOL BOLUS FROM BAG IV PRN (21:31)
[2022-03-14] MEDS ORDERED: SODIUM CHLORIDE 3% 500 ML BAG IV ONE (21:32)
[2022-03-14 21:36] LABS: Troponin I High Sensitivity 188.9 pg/ml (0-14)
[2022-03-14] MEDS ORDERED: propofoL 1,000 MG/100 ML VIAL IV SCH (21:45)
[2022-03-14 21:46] LABS: Albumin Globulin Ratio 1.1 (0.9-2); Albumin Level 3.9 gm/dl (3.4-5.0); Bilirubin,Total 0.4 mg/dl (0.2-1.0); Calcium 8.4 mg/dl (8.5-10.1); Est GFR (African American) 104.3 ml/min; Globulin 3.4 gm/dl (2.5-4.0); Magnesium 5.3 mg/dl (1.7-2.4); Potassium 4.4 mmol/L (3.5-5.1); Total Protein 7.3 gm/dl (6.0-8.3)
[2022-03-14] MEDS: MIDAZOLAM HCL 1 MG/ML 2ML VIAL IV PRN ×2 (21:54→22:10)
[2022-03-14 21:56] LABS: iSTAT Allen Test Pass; iSTAT Art Bld Gas pCO2 Correct 33 mmHg (35-46); iSTAT Art Bld Gas pH Corrected 7.235 (7.35-7.45); iSTAT Arterial Blood Gas HCO3 14 meg/L (19-24); iSTAT Arterial Blood Gas pCO2 34 mmHg (35-46); iSTAT Arterial Blood Gas pH 7.23 (7.35-7.45); iSTAT Arterial Blood Gas pO2 143 mmHg (80-95); iSTAT Arterial Blood Gas pO2 C 142; iSTAT Carbon Dioxide 15 mmol/L (24-31); iSTAT FiO2 50 %; iSTAT Hematocrit 41 % (37-47); iSTAT Hemoglobin 13.9 g/dl (12.0-16.0); iSTAT Potassium 4.3 mmol/L (3.3-5.0); iSTAT Site R Radial; iSTAT Sodium 133 mmol/L (135-144)
[2022-03-14] MEDS ORDERED: MIDAZOLAM HCL 1 MG/ML 2ML VIAL IV STA (22:05)
[2022-03-14] MEDS ORDERED: MIDAZOLAM HCL 125 MG/250 ML BAG IV SCH (22:15)
[2022-03-14] MEDS ORDERED: MIDAZOLAM BOLUS FROM BAG IV PRN (22:15)
[2022-03-14 22:27] LABS: Hematocrit (blood only) 48.1 % (37-47); Hemoglobin 15.9 g/dL (12.0-16.0); Mean Corpuscular Hemoglobin 31.9 pg (25-34); Mean Corpuscular Hgb Conc 33.1 g/dL (32-36); Mean Corpuscular Volume 96.6 fL (80-100); Mean Platelet Volume 10.3 fL (7.4-10.4); Platelet Count 437 K/uL (130-400); RDW Coefficient of Variation 14.2 % (11.5-14.5); RDW Standard Deviation 49.9 fL (36.4-46.3); Red Blood Count 4.98 M/uL (4.2-5.4); White Blood Count 34.04 K/uL (4.8-10.8)
[2022-03-14 22:29] LABS: Basophils # (auto) 0.04 K/uL (0-0.2); Basophils % (auto) 0.1 %; Eosinophils # (auto) 0.02 K/uL (0-0.5); Eosinophils % (auto) 0.1 %; Immature Granulocytes # (auto) 0.53 K/uL (0.00-0.02); Immature Granulocytes % (auto) 1.6 %; Lymphocytes # (auto) 2.89 K/uL (1.2-3.4); Lymphocytes % (auto) 8.5 %; Monocytes # (auto) 0.88 K/uL (0.11-0.59); Monocytes % (auto) 2.6 %; Neutrophils # (auto) 29.68 K/uL (1.4-6.5); Neutrophils % (auto) 87.1 %
[2022-03-14] MEDS ORDERED: MIDAZOLAM HCL 125MG/250ML D5W ONE (22:34)
--- NOTE | 2022-03-14 22:40 | Discharge Summary ---
Date of Service March 14, 2022 Principal Diagnosis Parenchymal Hemorrhage of Basal Ganglia Seizure S/p vaginal delivery on 03/14 Discharge Exam General: Intubated/sedated HEENT: Atraumatic, normocephalic. ETT in place. Pulm: CTAB A&P. -wheezes, -rales, -rhonchi. Symmetrical chest rise. No increase work of breathing. No respiratory distress. Cardiac: RRR, -mrg. Radial pulses intact and symmetrical. No LE edema. Abdominal: soft, non-distended, BS x 4 Skin: warm, dry, no rash Discharge Data Allergies Allergy/AdvReac Type Severity Reaction Status Date / Time cephalexin Allergy Hives Verified 03/14/22 07:58 Penicillins Allergy Hives Verified 03/14/22 07:58 Sulfa (Sulfonamide Allergy Hives Verified 03/14/22 07:58 Antibiotics) Consultations 03/14/22 21:48 Burn CD for patient Stat Ordered Studies 03/14/22 20:44 CT head/brain wo con Urgent Hospital Course (1) Intraparenchymal hemorrhage of brain: Joanne Newton is a 31yo female who was admitted to [facility] on 03/14 at 39 weeks 0 days gestation for labor. She was delivered at ~10am with uncomplicated . Afterwards patient developed severe headaches and BP up to 227/110. At ~1300, patient was subsequently started on Magnesium as well as Magnesium 10 IV x1. Isaias gio was called at ~20:15 due to patient seizing with reported generalized tonic-clonic activity for ~2 minutes at 20:17. Convulsions resolved without intervention but patient remained agitated with borderline agonal breathing. Was subsequently intubated at ~20:45, sedated with Propofol and Versed, and was given Keppra 1g IV x1 shortly thereafter. ABG (s/p intubation) showed pH 7.23, pCO2 34, PO2 143 and PHCO3 14. Mg was 5.3 (therapeutic while on Mg sulfate for pre-eclampsia). Troponin also elevated at 188.9. Stat CT head w/o contrast showed parenchymal hemorrhage in left basal ganglia measuring 2.4x1.7cm, without midline shift. Patient will remain intubated and sedated with Propofol/Versed. Was started on Nicardipine gtt with improvement of BP to 118/55. She will be transferred to [facility] for further management. (2) Pre-eclampsia, severe, delivered with condition: (3) Seizure: Total Time Total Time Spent Total Time Spent (In Minutes): 30 minutes Discharge Plan Discharge Items Patient Disposition: Transfer Acute Care Hospital Reason For Visit: ONSET OF LABOR AT TERM Discharge Diagnosis: Parenchymal Hemorrhage of Left Basal Ganglia Seizure Preeclampsia Activity: Per Instructions section Non-emergency contact: Primary Care Provider and Switch Maker Call non-emergency contact if: you have any medication questions Follow-up/Referrals: Priti Ramirez PA-C [Primary Care Provider] - Diet: Regular OB Addtl Attending Provider Instructions: Joanne Newton is a 31yo female who was admitted to [facility] on 03/14 at 39 weeks 0 days gestation for labor. She was delivered at ~10am with uncomplicated . Afterwards patient developed severe headaches and BP up to 227/110. At ~1300, patient was subsequently started on Magnesium as well as Magnesium 10 IV x1. Isaias powers was called at ~20:15 due to patient seizing with reported generalized tonic-clonic activity for ~2 minutes at 20:17. Convulsions resolved without intervention but patient remained agitated with borderline agonal breathing. Was subsequently intubated at ~20:45, sedated with Propofol and Versed, and was given Keppra 1g IV x1 shortly thereafter. ABG (s/p intubation) showed pH 7.23, pCO2 34, PO2 143 and PHCO3 14. Mg was 5.3 (therapeutic while on Mg sulfate for pre-eclampsia). Troponin also elevated at 188.9. Stat CT head w/o contrast showed parenchymal hemorrhage in left basal ganglia measuring 2.4x1.7cm, without midline shift. Patient will remain intubated and sedated with Propofol/Versed. Was started on Nicardipine gtt with improvement of BP to 118/55. She will be transferred to [facility] for further management. Pending Studies at Discharge: No Stand-Alone Forms: [facility] Skilled Items Patient informed of condition?: Yes DNR: No Discharge Level of Care: Other Communicable Disease: No Discharge Prognosis: Stable Lines: Peripheral IV Urinary Catheter: No Medications and DC Order Prescriptions: Continued pantoprazole [Protonix] 40 mg Tablet,Delayed Release (Dr/Ec) 40 mg PO HS RF: 0 venlafaxine 150 mg capsule,extended release 24hr 187.5 mg PO HS RF: 0 PNV cmb#[id number]-ferrous fumarate-FA [] 28 mg iron- 800 mcg Tablet 1 tab PO HS RF: 0 Vitron-C 65 mg iron- 125 mg Tablet,Delayed Release (Dr/Ec) 1 tab PO HS RF: 0 Discharge Orders: Discharge Order (Routine); Ordered 03/14/22 Ordered By: Jn Walters Admission Data Admit Date/Time: 03/14/22 08:05 Attending Provider: Eliazar Donohue Admit Provider: Eliazar Donohue Primary Care Provider: Priti Ramirez Resident Activity Tracking Resident Involvement: Resident Care Provided Care Provided: Adult Hospital Medicine
--- NOTE | 2022-03-14 22:48 | Procedure Note ---
Procedure Note Date of Service March 14, 2022 Note ARTERIAL LINE PROCEDURE NOTE: Procedure: Arterial Line Placement Attending: Dr. Riley Provider: CHRISTOPHER Barnhart Indication: Continuous hemodynamic monitoring Anesthesia: Lidocaine 1% Consent was signed and placed on the chart prior to procedure. Indication, risks, and benefits were explained at length. A time-out was completed verifying correct patient, procedure, site, positioning, and implant(s) or special equipment if applicable. Allens test was performed to ensure adequate perfusion. Patients right wrist was prepped and draped in the usual sterile fashion. Ultrasound guidance was used to aid needle placement. A 20g Arrow arterial line was introduced into the right radial artery. Catheter was threaded, and the needle was removed with appropriate blood return. Good waveform was observed. The patient tolerated the procedure well. Confirmation of placement with ultrasound. Blood Loss: Minimal Complications: None Procedural Ultrasound Guidance: Procedure Date: 03/14/2022 Indication: Arterial line insertion Attending: Dr. Riley Provider: CHRISTOPHER Barnhart Artery Identified: YES Line confirmed in Artery with ultrasound: Yes Complications: NONE Patient tolerated procedure: WELL Coding CPT Codes Tubes, Drains, and Vasc Access - Tubes, Drains, and Vasc Access: [id number] Place Catheter In Artery ([id number]) [facility] [place] ([place]) Tubes, Drains, and Vasc Access Procedure 1: Tubes, Drains, and Vasc Access: [id number] Place Catheter In Artery
[2022-03-14] MEDS ORDERED: MAGNESIUM SULFATE / WTR 40 GM/1,000 ML BAG IV SCH (23:27)
--- NOTE | 2022-03-14 23:43 | Critical Care Consultation ---
Date of Consultation March 14, 2022 Assessment & Plan (1) Intraparenchymal hemorrhage of brain: Reason Critically Ill: 31-year-old female undergoing treatment for preeclampsia, presents to the ICU following seizure activity for which she was intubated in a combative postictal state. Patient was found to have intraparenchymal hemorrhage with bleeding to the left ventricle on CT head and is now undergoing transfer to tertiary center for neurosurgical evaluation. Neuro - Sedation: Propofol/Versed drips Intraparenchymal hemorrhageseen on CT scan following seizure-like activity. -CT head Noncon: Parenchymal hemorrhage within the left basal ganglia measuring 2.4 x 1.7 cm. Blood products within the ventricle and foramen magnum. No hydrocephalus. Thin 2 mm posterior parafalcine subdural hemorrhage. No herniation -Patient loaded with Keppra for seizure activity and continuing magnesium drip as unsure if this is due to preeclampsia versus hemorrhage -A-line inserted. Target SBP less than 140. Nicardipine ordered if needed -Elevate head 30 degrees -No coagulopathy to correct -Patient now undergoing transfer to tertiary center for neurosurgical evaluation. Will medically manage until then here in ICU. Cardiac - No cardiac history. Normal sinus rhythm on monitor. Elevated troponin likely demand ischemia, can trend of delay of transfer. Continuous monitoring on telemetry. Respiratory - Mechanically ventilatedpatient intubated to secure airway following seizure with postictal state -Target CO2 35 with brain hemorrhage, monitor ABGs -Wean vent as tolerated -Chest x-ray demonstrated left diffuse atelectasis. Suspect this is from right mainstem which was readjusted prior to image. Monitor -Continuous ET CO2 and pulse ox monitoring. GI - N.p.o. RENAL/LYTES - Creatinine within normal limits. Monitor routine BMPs - Foleystrict I's and O's ENDO - No history of diabetes or thyroid disease. ICU hyperglycemic protocol Preeclampsiacontinue magnesium drip. Trend magnesium to adjust. -Appreciate DATA MANAGER recommendations HEME - H&H stable, no evidence of further bleeding. Monitor ID - No indication for infectious process at this time LINES/IV ACCESS - Peripheral IVs, A-line, ET tube DVT PROPHYLAXIS - SCDs I have personally spent 135 minutes of critical care time in the direct management of this patient. This is a life/limb threatening event. This includes time spent evaluating patient, direct bedside care, chart review, placing orders, interpretation of diagnostic studies, discussion with consultants, patient, and family members, as well as other required patient management activities. This time is exclusive of all separately billable procedures, and teaching time and separate from and in addition to any other critical care service time. Thank you for allowing us to participate in the care of this patient. Please refer to my attending physician's documentation for any further recommendations. (2) Seizure: (3) Pre-eclampsia, severe, delivered with condition: (4) 39 weeks gestation of : History of Present Illness Attending Physician: lEiazar Donohue MD History of Present Illness Patient is a 31-year-old female who underwent vaginal childbirth earlier today on labor and delivery. She was undergoing treatment for severe preeclampsia with magnesium drip. Patient's infant was transferred to [place]. Around the time of transferred patient experienced seizure-like activity, for approximately 5 minutes. Post seizure patient was postictal and combative and required intubation. She had been hypertensive earlier today and was treated with labetalol. Following intubation and patient was taken for CT head Noncon which revealed parenchymal hemorrhage within the left basal ganglia measuring 2.4 x 1.7 cm with blood product in the ventricles and foramen magnum. She was taken to the ICU and transport was arranged to [facility]. Patient has now been accepted for transfer for neurosurgical evaluation. I did speak with the patient's who was agreeable to transfer. Plan to stabilize and medically manage while awaiting transfer in ICU. Allergies Allergy/AdvReac Type Severity Reaction Status Date / Time cephalexin Allergy Hives Verified 03/14/22 07:58 Penicillins Allergy Hives Verified 03/14/22 07:58 Sulfa (Sulfonamide Allergy Hives Verified 03/14/22 07:58 Antibiotics) Home Medications Medication Instructions Recorded Confirmed Type pantoprazole 40 mg tablet,delayed 40 mg PO HS 02/23/19 03/14/22 History release (Protonix) vit no.95-ferrous 1 tab PO HS 08/23/21 03/14/22 History fumarate 28 mg-folic acid 800 mcg tablet () venlafaxine 150 mg 187.5 mg PO HS 08/23/21 03/14/22 History capsule,extended release 24 hr iron,carbonyl 65 mg-vitamin C 125 1 tab PO HS 03/14/22 03/14/22 History mg tablet,delayed release (Vitron-C) Patient History Medical History Depression GERD (gastroesophageal reflux disease) Controlled with medicine IBS (irritable bowel syndrome) No significant past medical history Ostium secundum atrial septal defect history of as a baby. Has closed off since Asymptomatic Surgical History H/O colonoscopy H/O esophagogastroduodenoscopy [place] teeth extracted Family History (Updated 03/14/22 @ 07:52 by Ramona De La O RN) Mother Family history of diabetes mellitus Lung cancer, lower lobe Social History Smoking Status: Never smoker Second Hand Exposure: No; Do You Dip or Chew Tobacco: No; Tobacco Cessation Education Requested by Patient: No Hx Alcohol Use: Yes Hx Substance Use: No Preferred Language: Mohawk Communication Ability: Effective Emd Teacher Required: No Beliefs That Will Affect Care: None marital status: Current Living Situation: Spouse Current Living Situation Comment: 3yr daughter Feels Safe at Home: Yes Safety Concerns: Feels Safe At This Time Assistive Devices: None Review of Systems Review of Systems: Unobtainable due to cognitive status and Unobtainable due to endotracheal tube Physical Exam Constitutional: + obese and + mechanically ventilated Eyes: PERRL, conjunctivae normal, anicteric sclerae ENMT: external ear and nose normal, oropharynx normal Neck: trachea midline, no thyromegaly Respiratory: normal respiratory effort, lungs clear to auscultation Mechanically ventilated Cardiovascular: RRR, no murmur, no edema Heart Sounds: normal S1 and normal S2 Extremities: normal capillary refill; no edema Gastrointestinal (Abdomen): normal bowel sounds, soft, nontender, no hepatosplenomegaly Musculoskeletal: Unable to assess due to sedation Skin: no rashes, warm and dry Neurologic: Unable to assess due to sedation/paralytics Psychiatric: Unable to assess due to sedation/paralytics Genitourinary: Indwelling Gonzales catheter present Results & Data Results & Data ([facility]) Vital Signs (Past 12 Hours) Vital Signs Temp Pulse Resp BP Pulse Ox 03/14/22 21:54 113 H 25 H 96 03/14/22 21:07 118 H 118/55 L 03/14/22 21:04 122 H 118/55 L 03/14/22 21:01 122 H 119/58 L 03/14/22 20:58 133 H 132/58 L 03/14/22 20:55 139 H 134/58 L 03/14/22 20:52 134 H 138/56 L 03/14/22 20:49 125 H 146/64 H 03/14/22 20:46 99 H 154/73 H 03/14/22 20:41 126 H 183/82 H 03/14/22 20:14 22 03/14/22 20:12 110 H 98 03/14/22 20:07 107 H 96 03/14/22 20:02 98 H 98 03/14/22 19:59 115 H 154/93 H 03/14/22 19:57 109 H 96 03/14/22 19:52 120 H 98 03/14/22 19:47 127 H 97 03/14/22 19:42 119 H 99 03/14/22 19:37 120 H 98 03/14/22 19:32 124 H 100 03/14/22 19:29 115 H 138/90 03/14/22 19:27 114 H 98 03/14/22 19:22 111 H 97 03/14/22 19:17 108 H 99 03/14/22 19:12 111 H 98 03/14/22 19:11 36.4 C L 20 03/14/22 19:09 115 H 148/86 H 03/14/22 19:07 112 H 96 03/14/22 19:02 111 H 98 03/14/22 18:59 106 H 184/100 H 03/14/22 18:57 102 H 97 03/14/22 18:52 128 H 98 03/14/22 18:47 101 H 99 03/14/22 18:42 105 H 98 03/14/22 18:37 102 H 98 03/14/22 18:32 88 98 03/14/22 18:29 99 H 174/96 H 03/14/22 18:27 100 H 98 03/14/22 18:22 99 H 98 03/14/22 18:17 103 H 99 03/14/22 18:12 96 H 98 03/14/22 18:07 92 H 99 03/14/22 18:02 94 H 100 03/14/22 18:00 20 03/14/22 17:59 112 H 136/94 03/14/22 17:57 100 H 97 03/14/22 17:52 98 H 98 03/14/22 17:47 90 99 03/14/22 17:42 100 H 97 03/14/22 17:37 98 H 99 03/14/22 17:32 102 H 99 03/14/22 17:29 103 H 161/91 H 03/14/22 17:27 95 H 98 03/14/22 17:22 100 H 98 03/14/22 17:17 89 98 03/14/22 17:15 20 03/14/22 17:12 105 H 99 03/14/22 17:07 112 H 98 03/14/22 17:02 114 H 100 03/14/22 16:59 108 H 140/92 03/14/22 16:57 84 98 03/14/22 16:52 89 98 03/14/22 16:47 97 H 98 03/14/22 16:42 96 H 97 03/14/22 16:37 99 H 97 03/14/22 16:32 99 H 97 03/14/22 16:29 110 H 130/90 03/14/22 16:27 95 H 97 03/14/22 16:22 95 H 96 03/14/22 16:17 92 H 98 03/14/22 16:13 90 85 L 03/14/22 16:12 88 97 03/14/22 16:07 104 H 99 03/14/22 16:05 36.4 C L 20 03/14/22 16:02 95 H 99 03/14/22 15:59 20 03/14/22 15:58 113 H 147/90 H 03/14/22 15:57 113 H 99 03/14/22 15:52 99 H 98 03/14/22 15:47 86 98 03/14/22 15:42 85 98 03/14/22 15:37 114 H 98 03/14/22 15:32 86 98 03/14/22 15:27 69 99 03/14/22 15:24 113 H 90 03/14/22 15:22 76 97 03/14/22 15:17 72 98 03/14/22 15:12 68 96 03/14/22 15:08 97 H 191/111 H 03/14/22 15:07 94 H 96 03/14/22 15:02 73 98 03/14/22 14:57 77 98 03/14/22 14:52 77 99 03/14/22 14:47 61 98 03/14/22 14:42 101 H 98 03/14/22 14:37 62 159/91 H 98 03/14/22 14:32 57 L 98 03/14/22 14:22 86 153/98 H 97 03/14/22 14:19 69 87 L 03/14/22 14:17 68 98 03/14/22 14:13 78 147/84 H 90 03/14/22 14:12 96 H 95 03/14/22 14:07 61 94 03/14/22 14:03 78 90 03/14/22 14:02 62 95 03/14/22 13:57 62 97 03/14/22 13:53 90 90 03/14/22 13:52 59 L 151/88 H 94 03/14/22 13:47 61 95 03/14/22 13:46 65 94 03/14/22 13:42 55 L 95 03/14/22 13:37 58 L 158/87 H 98 03/14/22 13:32 58 L 98 03/14/22 13:27 54 L 98 03/14/22 13:25 53 L 161/76 H 03/14/22 13:22 58 L 98 03/14/22 13:17 53 L 98 03/14/22 13:12 55 L 98 03/14/22 13:07 56 L 98 03/14/22 13:06 57 L 145/71 H 03/14/22 13:02 56 L 97 03/14/22 13:01 71 144/71 H 03/14/22 12:57 51 L 100 03/14/22 12:56 59 L 151/72 H 03/14/22 12:53 34.5 C L 52 L 152/72 H 03/14/22 12:52 51 L 99 03/14/22 12:47 53 L 99 03/14/22 12:45 80 20 93 03/14/22 12:42 54 L 99 03/14/22 12:41 52 L 169/80 H 03/14/22 12:37 53 L 98 03/14/22 12:36 52 L 161/87 H 03/14/22 12:32 46 L 100 03/14/22 12:31 51 L 155/80 H 03/14/22 12:27 45 L 168/70 H 97 03/14/22 12:26 82 90 03/14/22 12:21 53 L 145/65 H 03/14/22 12:19 51 L 125/57 L 93 03/14/22 12:17 52 L 99 03/14/22 12:16 34.1 C L 03/14/22 12:15 56 L 120/56 L 03/14/22 12:13 62 125/60 91 03/14/22 12:12 65 100 03/14/22 12:09 63 192/108 H 03/14/22 12:07 70 88 L 03/14/22 12:04 64 88 L 03/14/22 12:01 64 214/110 H 98 03/14/22 11:59 62 213/105 H 03/14/22 11:56 64 98 03/14/22 11:54 63 227/104 H 03/14/22 11:51 65 221/105 H 99 03/14/22 11:47 62 217/105 H 03/14/22 11:46 60 22 97 03/14/22 11:41 65 99 03/14/22 11:36 59 L 98 03/14/22 11:32 59 L 205/96 H 03/14/22 11:31 58 L 97 03/14/22 11:26 57 L 98 03/14/22 11:23 29 L 174/82 H 03/14/22 11:21 57 L 98 03/14/22 11:19 24 03/14/22 11:16 68 177/91 H 98 03/14/22 11:15 24 03/14/22 11:11 58 L 99 03/14/22 11:10 60 192/94 H 03/14/22 11:06 60 99 03/14/22 11:02 59 L 196/95 H 03/14/22 11:01 59 L 98 03/14/22 11:00 24 03/14/22 10:56 61 99 03/14/22 10:51 57 L 178/90 H 99 03/14/22 10:46 64 97 03/14/22 10:45 65 24 157/83 H 03/14/22 10:41 70 100 03/14/22 10:36 74 99 03/14/22 10:32 70 145/76 H 03/14/22 10:31 75 96 03/14/22 10:30 28 H 03/14/22 10:26 82 99 03/14/22 10:25 73 151/83 H 03/14/22 10:21 82 98 03/14/22 10:19 72 141/74 H Coding Level of Care Code Critical Care ea addt'l 30 min Diagnoses Intraparenchymal hemorrhage of brain I61.9 Seizure R56.9 Pre-eclampsia, severe, delivered with condition O14.15 39 weeks gestation of Z3A.39
--- NOTE | 2022-03-15 07:38 | CT Scan Report ---
CT OF THE HEAD WITHOUT CONTRAST CLINICAL HISTORY: Seizure. COMPARISON STUDY: No previous studies for comparison. CT DOSE: 773.57 mGy.cm TECHNIQUE: Helical axial images of the head were obtained without IV contrast. Automated exposure con trol was utilized for the study. A dose lowering technique was utilized adhering to the principles o f ALARA. FINDINGS: There is a 2 x 2 cm hyperdense focus suggestive of hemorrhage within the left basal ganglia . There is mild mass effect with slight compression of the frontal horn of the left lateral ventricle . Note is made of moderate acute intraventricular hemorrhage. Specifically, there is hemorrhage withi n the lateral ventricles, third ventricle and fourth ventricle. There is also hemorrhage within the f oramen magnum. There is no evidence for hydrocephalus. A small amount of acute subdural hemorrhage al vianney the posterior falx is noted. Several small foci of pneumocephalus are noted, including a small am ount of gas within the frontal horn of the right lateral ventricle. No acute calvarial fracture is pr esent. IMPRESSION: 1. 2 cm hyperdense focus suggestive of acute hemorrhage within the left basal ganglia. Etiology for t his hemorrhage is not clear on this exam. 2. Acute intraventricular hemorrhage, as detailed above. No hydrocephalus at this time. 3. Small amount of acute subdural hemorrhage along the posterior falx. 4. Small amount of pneumocephalus, including gas within the frontal horn of the right lateral ventric le. This could be related to recent epidural. ACT 112: Negative or not required by law. Electronically signed by: Marcin Eubanks M.D. 03/15/2022 7:37 AM
[2022-03-15] MEDS ORDERED: ASCORBIC ACID 500 MG TAB PO SCH (08:00)
[2022-03-15] MEDS ORDERED: FERROUS SULFATE 325 MG TAB PO SCH (08:00)
[2022-03-15] MEDS ORDERED: PRENATAL VITAMIN 1 TAB PO SCH (08:00)
--- NOTE | 2022-03-15 09:26 | History & Physical Report ---
Date of Service March 15, 2022 Assessment & Plan (1) 39 weeks gestation of : Plan: admit in labor Admission and Anticipated Discharge Date Admission Date: March 14, 2022 History of Present Illness Chief Complaint: onset of labor Primary Care Provider: Priti Ramirez PA-C 31 F P1011 at 39.2 weeks admitted in active labor. GBS is negative. Covid is negative. Allergies Allergy/AdvReac Type Severity Reaction Status Date / Time cephalexin Allergy Hives Verified 03/14/22 07:58 Penicillins Allergy Hives Verified 03/14/22 07:58 Sulfa (Sulfonamide Allergy Hives Verified 03/14/22 07:58 Antibiotics) Home Medications Medication Instructions Recorded Confirmed Type pantoprazole 40 mg tablet,delayed 40 mg PO HS 02/23/19 03/14/22 History release (Protonix) vit no.95-ferrous 1 tab PO HS 08/23/21 03/14/22 History fumarate 28 mg-folic acid 800 mcg tablet () venlafaxine 150 mg 187.5 mg PO HS 08/23/21 03/14/22 History capsule,extended release 24 hr iron,carbonyl 65 mg-vitamin C 125 1 tab PO HS 03/14/22 03/14/22 History mg tablet,delayed release (Vitron-C) Patient History Medical History Depression GERD (gastroesophageal reflux disease) Controlled with medicine IBS (irritable bowel syndrome) No significant past medical history Ostium secundum atrial septal defect history of as a baby. Has closed off since Asymptomatic Surgical History H/O colonoscopy H/O esophagogastroduodenoscopy [place] teeth extracted Family History Mother Family history of diabetes mellitus Lung cancer, lower lobe Social History Smoking Status: Never smoker Second Hand Exposure: No; Do You Dip or Chew Tobacco: No; Tobacco Cessation Education Requested by Patient: No Hx Alcohol Use: Yes Hx Substance Use: No Preferred Language: Swedish Communication Ability: Effective Automobile Wrecker Required: No Beliefs That Will Affect Care: None marital status: Current Living Situation: Spouse Current Living Situation Comment: 3yr daughter Feels Safe at Home: Yes Safety Concerns: Feels Safe At This Time Assistive Devices: None OB History history of cholestasis of with first had Covid with this TERMINOLOGIST History neg Review of Systems All systems reviewed & are unremarkable except as noted in HPI & below Physical Exam Constitutional: WD/WN, vitals as above Eyes: PERRL, conjunctivae normal, anicteric sclerae Respiratory: normal respiratory effort, lungs clear to auscultation Cardiovascular: RRR, no murmur, no edema Skin: no rashes, warm and dry Neurologic: patellar DTR's 2+ bilat, sensation intact Genitourinary: OB Exam Abdomen: + fundal height and + vertex Manual OB Exam: + cervical dilation 5 cm, + cervical effacement 100% and + station -2 Results & Data ([facility]) Vital Signs (Past 12 Hours) Vital Signs Temp Pulse Pulse Pulse Resp BP BP 03/14/22 23:27 114/67 03/14/22 23:00 108 H 22 100/68 03/14/22 22:50 109 H 22 111/67 03/14/22 22:30 36.7 C 110 H 26 H 109/44 L 03/14/22 22:00 108 H 24 109/69 03/14/22 21:54 113 H 25 H 03/14/22 21:45 116 H 23 110/60 03/14/22 21:30 36.7 C 113 H 30 H 104/83 Pulse Ox 03/14/22 23:27 03/14/22 23:00 97 03/14/22 22:50 97 03/14/22 22:30 96 03/14/22 22:00 97 03/14/22 21:54 96 03/14/22 21:45 97 03/14/22 21:30 96 Monitoring External Monitor Cat 1
[2022-03-15] MEDS ORDERED: bisacodyL 5 MG TABEC PO SCH (20:00)
--- NOTE | 2022-03-15 21:57 | Electrocardiogram Report ---
Test Reason : Blood Pressure : / mmHG Vent. Rate : 099 BPM Atrial Rate : 099 BPM P-R Int : 140 ms QRS Dur : 078 ms QT Int : 388 ms P-R-T Axes : 065 069 050 degrees QTc Int : 497 ms Normal sinus rhythm Prolonged QT Abnormal ECG No previous ECGs available Confirmed by Raimundo Rose ([id number]) on 03/15/2022 9:56:53 PM Referred By: Telma Cedeno Confirmed By:Raimundo Rose
== END 2022-03-15 00:10 | disposition short-term general hospital (02) | DRG 805 ==
LOC: OPB 05:51 → 4S1 05:53 → 1E 21:17
DX: Z88.2 Allergy status to sulfonamides; Z88.1 Allergy status to other antibiotic agents; I61.8 Other nontraumatic intracerebral hemorrhage; O99.63 Diseases of the digestive system complicating the puerperium; Z3A.39 39 weeks gestation of pregnancy; O77.0 Labor and delivery complicated by meconium in amniotic fluid; R68.0 Hypothermia, not associated with low environmental temperature; O99.43 Diseases of the circulatory system complicating the puerperium; O99.344 Other mental disorders complicating childbirth; O14.14 Severe pre-eclampsia complicating childbirth; K21.9 Gastro-esophageal reflux disease without esophagitis; Z88.0 Allergy status to penicillin; Z37.0 Single live birth; F32.A Depression, unspecified; O76 Abnormality in fetal heart rate and rhythm complicating labor and delivery; O89.4 Spinal and epidural anesthesia-induced headache during the puerperium

== ENCOUNTER 2022-03-24 20:19 | Observation (INO) ==
--- NOTE | 2022-03-24 20:47 | Emergency Department Note ---
Impression & Plan Visual field defects, Paresthesia of right arm ED Provider Note Name: ANTHONY BAL Age: 31 Sex: F Arrives Via: Walk-In Informant: Patient, ED Provider: nJ Shine MD Chief Complaint: Neurologic deficits Impression: As per impressions above Medical Decision Making: Pleasant 31-year-old female with complex last 2 weeks after having delivered a baby developing severe eclampsia, seizures, intracranial hemorrhage, intubation and transfer to [place] for further management. She was discharged 5 days ago and is doing well. Mild hypertension which she had her amlodipine increased to 10 mg yesterday. Today she is had a 20-minute episode of right visual field deficits and paresthesias in the right arm. She had no weakness, syncope, slurred speech and other acute findings. Nursing made me aware of patient in triage and I rapidly saw patient in room B6. On my evaluation she has no further symptoms neurologically intact and blood pressures just slightly on the higher end at 135/90 but does not require intervention at this time. She was u rgently sent for CT of the head given the known previous head bleed. CT fortunately reveals no acute new changes and shows the resolving intracranial hemorrhages. After obtaining CT immediately contacted [facility] neurology who managed her at [place]. After discussion they note no clear indication for need for transfer at this time though advised hospitalization here and get MRI for further evaluation. We discussed blood pressure management and suggestion was to focus on keeping systolic at 140 and below which I think is reasonable. Patient's blood pressure has been hovering in the 120s over 80s at this point. I will note the patient did have another episode of the symptoms prior to me contacting neurology though it resolved within short order. Rest the patient's work-up is negative and benign. She will need to come in for further management. I did not contact OB as patient does not have significant hypertension she has no abdominal pain nor other acute findings. I feel that this is more of a neurologic work-up at this time. Prior Medical Record and Triage/Nursing Notes reviewed by Me Additional history obtained from chart Differentials:Stroke, residual effects ICH, Migraine headache, meningitis, sinusitis, CO exposure, ICH, SAH, infection, tumor, headache, sinus thrombosis, arterial dissection, as well as other pathologies. Vital Signs: reviewed and remarkable for no significant abnormalities Labs:Reviewed and remarkable for no significant abnormalities Imaging:CT head similar findings to previous CT with resolving with lacunar, intraventricular and subdural bleeds EKG:Per My Interpretation: Indication neurologic symptoms: NSR 98bpm, qtc 449. No Ectopy. No Ischemia. Compared to EKG March 14, 2022, no significant changes. Consults:Dr. Mateo Diaz neurology [place]. Dr. Hansa Diaz hospitalist Plan: Disposition:Hospitalization. Condition: Good History of Present Illness:11-year-old female arrives for evaluation of neurologic deficits. Patient notes that she was hospitalized last week for delivery of her baby when she had a seizure, head bleed both of which were felt secondary to preeclampsia and severe hypertension. She was flown to [place] where she was monitored. She was discharged on Saturday and has been feeling well for the last 5 days. She notes her blood pressure was mildly elevated in the office and thus she had her amlodipine increased 2 days ago. Today she was at home when she suddenly noticed her right visual field went blurry and she had tingling/paresthesias of the right arm. This lasted roughly 20 minutes before resolving. She denied any significant headache with it. She had no other neurologic deficits or weakness. She had no falls, trauma, injuries. She denies any chest pain, shortness of breath, back pain, abdominal pain, urinary/bowel symptoms, leg swelling or calf pain. No medication prior to arrival. Nothing made this better or worse. ROS: See above HPI for pertinent positives & negatives. A total of 10 systems reviewed and were otherwise negative. Past Medical History:See Below Past Surgical History:See Below Family History:See Below Social History:See Below Home Medications:See Below Allergies:See Below Vitals:Blood Pressure: 137/99, Pulse 106, RR 18, T 36.7C, O2 97% on RA Physical Exam: GENERAL: Patient is mildly anxious appearing and in mild distress. EYES: No scleral icterus, unremarkable pupils. ENT: Mucous membranes moist, no nasal congestion. NECK: No masses appreciated, nomeningismus, trachea is midline. RESPIRATORY: No dyspnea. Clear to auscultation and equal bilaterally. No wheeze, no rhonchi. CARDIOVASCULAR: Regular rate and rhythm.No murmurs, rubs, gallops appreciated. GASTROINTESTINAL: Abdomen soft, non-tender, no peritonitis.Bowel sounds positive.No masses appreciated. BACK: No midline tenderness, no CVA tenderness EXTREMITIES: Normal motion all extremities, no cyanosis, no edema. NEUROLOGIC: Alert and oriented, no acute motor or sensory deficits, no focal weakness, cranial nerves grossly intact. SKIN: No rash, no jaundice, no diaphoresis. PSYCH: Appropriate GCS: 15 ED Course: Times/Reassessments: Patient had another episode of of right arm paresthesia and right visual field deficit which resolved after a few minutes. Agreeable to hospitalization Jn Shine MD Past Med/Surg History Medical History Depression GERD (gastroesophageal reflux disease) Controlled with medicine IBS (irritable bowel syndrome) No significant past medical history Ostium secundum atrial septal defect history of as a baby. Has closed off since Asymptomatic Surgical History H/O colonoscopy H/O esophagogastroduodenoscopy [place] teeth extracted Family History Mother Family history of diabetes mellitus Lung cancer, lower lobe Social History Smoking Status: Former smoker Second Hand Exposure: No; Do You Dip or Chew Tobacco: No; Tobacco Cessation Education Requested by Patient: No Hx Alcohol Use: Yes Hx Substance Use: No Preferred Language: Czech Communication Ability: Effective Clinical Coder Required: No Beliefs That Will Affect Care: None marital status: Current Living Situation: Spouse Current Living Situation Comment: 3yr daughter Other Information That Helps Us Care for You: No Feels Safe at Home: Yes Safety Concerns: Feels Safe At This Time Assistive Devices: None Allergies Allergies Allergy/AdvReac Type Severity Reaction Status Date / Time cephalexin Allergy Intermediate Hives Verified 03/24/22 21:26 Penicillins Allergy Intermediate Hives Verified 03/24/22 21:26 Sulfa (Sulfonamide Allergy Intermediate Hives Verified 03/24/22 21:26 Antibiotics) Home Meds Home Medications Medication Instructions Recorded Confirmed pantoprazole 40 mg tablet,delayed 40 mg PO QAM 02/23/19 03/24/22 release (Protonix) venlafaxine 150 mg 150 mg PO QAM 08/23/21 03/25/22 capsule,extended release 24 hr iron,carbonyl 65 mg-vitamin C 125 1 tab PO QAM 03/14/22 03/24/22 mg tablet,delayed release (Vitron-C) amlodipine 10 mg tablet 10 mg PO QAM 03/24/22 03/24/22 magnesium glycinate 100 mg tablet 100 mg PO QAM 03/24/22 03/24/22 ondansetron 8 mg disintegrating 8 mg PO DIRECTED PRN 03/24/22 03/24/22 tablet venlafaxine 37.5 mg 37.5 mg PO QAM 03/24/22 03/24/22 capsule,extended release 24 hr Results & Data (ED) Vital Signs Vital Signs - 24 hr 03/24/22 20:23 03/24/22 20:41 03/24/22 20:51 Temperature Temperature Source Pulse Rate 106 H 101 H Pulse Rate [Apical] 103 H Pulse Rate from SpO2 Sensor 101 H Pulse Rhythm [Apical] Respiratory Rate 18 20 22 Respiratory Effort / Characteristics Non-Labored Spontaneous Non-Labored Spontaneous Respiratory Depth Normal Normal Respiratory Pattern Regular Blood Pressure 137/99 Blood Pressure [Right Arm] 135/97 Blood Pressure Mean 111 Blood Pressure Mean [Right Arm] 109 Blood Pressure Position Sitting Blood Pressure Position [Right Arm] Sitting Pulse Oximetry 97 97 98 Oxygen Delivery Method Room Air Room Air Sepsis Recent Fever Within 48 Hours No Sepsis New/Unexplained Change in Mental Status N/A Sepsis Action Taken by Nursing No Action Required 03/24/22 21:05 03/24/22 21:09 03/24/22 21:10 Temperature Temperature Source Pulse Rate Pulse Rate [Apical] 103 H Pulse Rate from SpO2 Sensor 99 H 92 H Pulse Rhythm [Apical] Respiratory Rate 18 Respiratory Effort / Characteristics Respiratory Depth Respiratory Pattern Blood Pressure 143/97 H 135/89 Blood Pressure [Right Arm] 143/97 H Blood Pressure Mean 112 104 Blood Pressure Mean [Right Arm] 112 Blood Pressure Position Blood Pressure Position [Right Arm] Pulse Oximetry 97 97 Oxygen Delivery Method Room Air Sepsis Recent Fever Within 48 Hours Sepsis New/Unexplained Change in Mental Status Sepsis Action Taken by Nursing 03/24/22 21:19 03/24/22 21:20 03/24/22 21:29 Temperature Temperature Source Pulse Rate Pulse Rate [Apical] Pulse Rate from SpO2 Sensor 101 H 91 H Pulse Rhythm [Apical] Respiratory Rate Respiratory Effort / Characteristics Respiratory Depth Respiratory Pattern Blood Pressure 138/92 Blood Pressure [Right Arm] Blood Pressure Mean 107 Blood Pressure Mean [Right Arm] Blood Pressure Position Blood Pressure Position [Right Arm] Pulse Oximetry 98 96 Oxygen Delivery Method Sepsis Recent Fever Within 48 Hours Sepsis New/Unexplained Change in Mental Status Sepsis Action Taken by Nursing 03/24/22 21:30 03/24/22 21:31 03/24/22 21:35 Temperature Temperature Source Pulse Rate Pulse Rate [Apical] Pulse Rate from SpO2 Sensor 92 H Pulse Rhythm [Apical] Respiratory Rate Respiratory Effort / Characteristics Respiratory Depth Respiratory Pattern Blood Pressure 125/97 Blood Pressure [Right Arm] 125/97 Blood Pressure Mean 106 Blood Pressure Mean [Right Arm] 106 Blood Pressure Position Blood Pressure Position [Right Arm] Semi-fowlers Pulse Oximetry 97 97 Oxygen Delivery Method Sepsis Recent Fever Within 48 Hours Sepsis New/Unexplained Change in Mental Status Sepsis Action Taken by Nursing 03/24/22 21:40 03/24/22 22:02 03/24/22 22:10 Temperature Temperature Source Pulse Rate Pulse Rate [Apical] Pulse Rate from SpO2 Sensor 102 H 85 73 Pulse Rhythm [Apical] Respiratory Rate Respiratory Effort / Characteristics Respiratory Depth Respiratory Pattern Blood Pressure 147/95 H 136/103 H Blood Pressure [Right Arm] Blood Pressure Mean 112 114 Blood Pressure Mean [Right Arm] Blood Pressure Position Blood Pressure Position [Right Arm] Pulse Oximetry 97 96 96 Oxygen Delivery Method Sepsis Recent Fever Within 48 Hours Sepsis New/Unexplained Change in Mental Status Sepsis Action Taken by Nursing 03/24/22 22:20 03/24/22 22:30 03/24/22 22:35 Temperature Temperature Source Pulse Rate Pulse Rate [Apical] Pulse Rate from SpO2 Sensor 74 99 H 85 Pulse Rhythm [Apical] Respiratory Rate Respiratory Effort / Characteristics Respiratory Depth Respiratory Pattern Blood Pressure 139/102 H 160/105 H Blood Pressure [Right Arm] Blood Pressure Mean 114 123 Blood Pressure Mean [Right Arm] Blood Pressure Position Blood Pressure Position [Right Arm] Pulse Oximetry 97 98 98 Oxygen Delivery Method Sepsis Recent Fever Within 48 Hours Sepsis New/Unexplained Change in Mental Status Sepsis Action Taken by Nursing 03/24/22 22:40 03/24/22 22:50 03/24/22 23:00 Temperature Temperature Source Pulse Rate 75 Pulse Rate [Apical] Pulse Rate from SpO2 Sensor 82 Pulse Rhythm [Apical] Respiratory Rate 20 Respiratory Effort / Characteristics Respiratory Depth Respiratory Pattern Blood Pressure 146/101 H 136/97 139/97 Blood Pressure [Right Arm] Blood Pressure Mean 116 110 111 Blood Pressure Mean [Right Arm] Blood Pressure Position Blood Pressure Position [Right Arm] Pulse Oximetry 98 Oxygen Delivery Method Sepsis Recent Fever Within 48 Hours Sepsis New/Unexplained Change in Mental Status Sepsis Action Taken by Nursing 03/24/22 23:10 03/24/22 23:20 03/24/22 23:30 Temperature Temperature Source Pulse Rate 69 67 70 Pulse Rate [Apical] Pulse Rate from SpO2 Sensor 74 Pulse Rhythm [Apical] Respiratory Rate 22 23 22 Respiratory Effort / Characteristics Respiratory Depth Respiratory Pattern Blood Pressure 135/96 138/97 142/99 H Blood Pressure [Right Arm] Blood Pressure Mean 109 110 113 Blood Pressure Mean [Right Arm] Blood Pressure Position Blood Pressure Position [Right Arm] Pulse Oximetry 97 Oxygen Delivery Method Sepsis Recent Fever Within 48 Hours Sepsis New/Unexplained Change in Mental Status Sepsis Action Taken by Nursing 03/24/22 23:39 Temperature 37.0 C Temperature Source Oral Pulse Rate Pulse Rate [Apical] 86 Pulse Rate from SpO2 Sensor Pulse Rhythm [Apical] Regular Respiratory Rate 12 Respiratory Effort / Characteristics Non-Labored Spontaneous Respiratory Depth Normal Respiratory Pattern Blood Pressure Blood Pressure [Right Arm] 142/99 H Blood Pressure Mean Blood Pressure Mean [Right Arm] 113 Blood Pressure Position Blood Pressure Position [Right Arm] Pulse Oximetry 98 Oxygen Delivery Method Room Air Sepsis Recent Fever Within 48 Hours Sepsis New/Unexplained Change in Mental Status Sepsis Action Taken by Nursing Laboratory Data Result diagrams: 03/25/22 06:58 03/25/22 06:58 Lab Results 03/24/22 03/24/22 03/24/22 Range/Units 20:30 20:30 20:30 WBC 10.57 (4.8-10.8) K/uL RBC 4.70 (4.2-5.4) M/uL Hgb 14.9 (12.0-16.0) g/dL Hct 43.5 (37-47) % MCV 92.6 (80-100) fL MCH 31.7 (25-34) pg MCHC 34.3 (32-36) g/dL RDW Std Deviation 44.1 (36.4-46.3) fL RDW Coeff of [place] 13.0 (11.5-14.5) % Plt Count 417 H (130-400) K/uL MPV 9.5 (7.4-10.4) fL Immature Gran % (Auto) 0.3 % Neut % (Auto) 67.3 % Lymph % (Auto) 24.7 % [place] % (Auto) 6.6 % Eos % (Auto) 0.9 % Baso % (Auto) 0.2 % Neut # (Auto) 7.12 H (1.4-6.5) K/uL Lymph # (Auto) 2.61 (1.2-3.4) K/uL [place] # (Auto) 0.70 H (0.11-0.59) K/uL Eos # (Auto) 0.09 (0-0.5) K/uL Baso # (Auto) 0.02 (0-0.2) K/uL Immature Gran # (Auto) 0.03 H (0.00-0.02) K/uL Sodium 139 (136-145) mmol/L Potassium 3.3 L (3.5-5.1) mmol/L Chloride 103 (98-107) mmol/L Carbon Dioxide 23 (21-32) mmol/L Anion Gap 13 H (3-11) BUN 16 (6-23) mg/dl Creatinine 0.79 (0.6-1.2) mg/dl Est Cr Clr Drug Dosing 115.7 ml/min Est GFR ( Amer) 117.2 ml/min Est GFR (Non-Af Amer) 101.2 ml/min BUN/Creatinine Ratio 20.3 H (10-20) Glucose 111 H (70-99(Fasting)) mg/dl Calcium 9.9 (8.5-10.1) mg/dl Magnesium 1.9 (1.7-2.4) mg/dl Total Bilirubin 0.5 (0.2-1.0) mg/dl Direct Bilirubin 0.1 (0-0.2) mg/dl AST 11 L (13-39) U/L ALT 16 (7-52) U/L Alkaline Phosphatase 125 H (34-104) U/L Troponin I High Sens 4.8 D (0-14) pg/ml Total Protein 8.1 (6.0-8.3) gm/dl Albumin 4.6 (3.4-5.0) gm/dl TSH 2.783 (0.300-4.500) uIu/ml SARS-CoV-2, RNA, NAAT (NEGATIVE) 06/04/22 Range/Units 21:48 WBC (4.8-10.8) K/uL RBC (4.2-5.4) M/uL Hgb (12.0-16.0) g/dL Hct (37-47) % MCV (80-100) fL MCH (25-34) pg MCHC (32-36) g/dL RDW Std Deviation (36.4-46.3) fL RDW Coeff of [place] (11.5-14.5) % Plt Count (130-400) K/uL MPV (7.4-10.4) fL Immature Gran % (Auto) % Neut % (Auto) % Lymph % (Auto) % [place] % (Auto) % Eos % (Auto) % Baso % (Auto) % Neut # (Auto) (1.4-6.5) K/uL Lymph # (Auto) (1.2-3.4) K/uL [place] # (Auto) (0.11-0.59) K/uL Eos # (Auto) (0-0.5) K/uL Baso # (Auto) (0-0.2) K/uL Immature Gran # (Auto) (0.00-0.02) K/uL Sodium (136-145) mmol/L Potassium (3.5-5.1) mmol/L Chloride (98-107) mmol/L Carbon Dioxide (21-32) mmol/L Anion Gap (3-11) BUN (6-23) mg/dl Creatinine (0.6-1.2) mg/dl Est Cr Clr Drug Dosing ml/min Est GFR ( Amer) ml/min Est GFR (Non-Af Amer) ml/min BUN/Creatinine Ratio (10-20) Glucose (70-99(Fasting)) mg/dl Calcium (8.5-10.1) mg/dl Magnesium (1.7-2.4) mg/dl Total Bilirubin (0.2-1.0) mg/dl Direct Bilirubin (0-0.2) mg/dl AST (13-39) U/L ALT (7-52) U/L Alkaline Phosphatase (34-104) U/L Troponin I High Sens (0-14) pg/ml Total Protein (6.0-8.3) gm/dl Albumin (3.4-5.0) gm/dl TSH (0.300-4.500) uIu/ml SARS-CoV-2, RNA, NAAT NEGATIVE (NEGATIVE) Administered Medications Amlodipine Besylate (Amlodipine Besylate 5 Mg Tab) 10 mg PO QAM BRENDA Stop: 04/24/22 08:59 Last Admin: 03/25/22 08:08 Dose: 10 mg Documented by: [id number] Lactated Ringer's (Lr) 1,000 mls @ 50 mls/hr IV .Q20H STA Stop: 03/25/22 18:25 Last Admin: 03/24/22 23:40 Dose: 50 mls/hr Documented by: [id number] Pantoprazole Sodium (Pantoprazole 40 Mg Tab) [facility] Stop: 04/24/22 08:59 Last Admin: 03/25/22 08:08 Dose: 40 mg Documented by: [id number] Venlafaxine HCl (Venlafaxine Hcl Xr 37.5 Mg Capxr) 37.5 [facility] [place] Stop: 04/24/22 08:59 Last Admin: 03/25/22 08:08 Dose: 37.5 mg Documented by: [id number] Venlafaxine HCl (Venlafaxine Hcl Xr 150 Mg Capxr) 150 [facility] [place] Stop: 04/24/22 08:59 Last Admin: 03/25/22 08:08 Dose: 150 mg Documented by: [id number] Discontinued Medications Magnesium Sulfate/Dextrose (Magnesium Sulfate / D5w) 1 gm in 100 mls @ 50 mls/hr IV ONE STA Stop: 03/25/22 00:25 Last Infusion: 03/25/22 01:22 Dose: 0 mls/hr Documented by: [id number] Admin: 03/24/22 22:55 Dose: 50 mls/hr Documented by: [id number] Potassium Chloride (Potassium Chloride Crtab 20 Meq Tabcr) 40 meq PO NOW STA Stop: 03/24/22 22:23 Last Admin: 03/24/22 22:54 Dose: 40 meq Documented by: [id number] Discharge Plan Visit Data Chief Complaint: Neuro Symptoms/Deficit Stated Complaint: TINGLING HANDS,BLURRY VISION,DIZZY,WEAK ED Provider: Jn Shine Discharge Problem: Visual field defects, Paresthesia of right arm Patient Disposition: Admitted As Inpatient Discharge Instructions Interventions: ED Discharge Assessment Last Done: 03/25/22 00:47
[2022-03-24 20:58] LABS: Basophils # (auto) 0.02 K/uL (0-0.2); Basophils % (auto) 0.2 %; Eosinophils # (auto) 0.09 K/uL (0-0.5); Eosinophils % (auto) 0.9 %; Hematocrit (blood only) 43.5 % (37-47); Hemoglobin 14.9 g/dL (12.0-16.0); Immature Granulocytes # (auto) 0.03 K/uL (0.00-0.02); Immature Granulocytes % (auto) 0.3 %; Lymphocytes # (auto) 2.61 K/uL (1.2-3.4); Lymphocytes % (auto) 24.7 %; Mean Corpuscular Hemoglobin 31.7 pg (25-34); Mean Corpuscular Hgb Conc 34.3 g/dL (32-36); Mean Corpuscular Volume 92.6 fL (80-100); Mean Platelet Volume 9.5 fL (7.4-10.4); Monocytes % (auto) 6.6 %; Neutrophils # (auto) 7.12 K/uL (1.4-6.5); Neutrophils % (auto) 67.3 %; Platelet Count 417 K/uL (130-400); RDW Standard Deviation 44.1 fL (36.4-46.3); White Blood Count 10.57 K/uL (4.8-10.8)
--- NOTE | 2022-03-24 21:18 | CT Scan Report ---
CT head/brain wo con CLINICAL HISTORY: 31 years-old Female with visual field deficit, right arm numbness, resolved. Acute visual field defect TECHNIQUE: Multiple axial CT images of the head were obtained without contrast. A dose lowering tech nique was utilized adhering to the principles of ALARA. CT DOSE: 614.27 mGy.cm COMPARISON: Head CT 03/14/2022. FINDINGS: There is no midline shift, intracranial mass, hydrocephalus, territorial ischemia or abnormal extra-a xial collection. Resolution of the previously described pneumocephalus. There is near complete resolu tion of the recently described acute intracranial hemorrhage is only minimal residual acute subdural hematoma layering along the posterior aspect of the falx cerebri on image 26 measuring less than 2 mm transversely. The previously described intraparenchymal or intraventricular hemorrhage is no longer appreciated. Ill-defined hypodensity of the left lentiform nucleus, adjacent anterior limb of the int ernal capsule and caudate nuclear head. The calvarium is intact. The paranasal sinuses, mastoid air cells, and middle ear cavities are clear . IMPRESSION: 1. Ill-defined hypodensity of the left lentiform nucleus, adjacent anterior limb of the internal caps ule and caudate nuclear head is likely from edema associated with resolved acute intraparenchymal hem orrhage. There is also resolution of the acute intraventricular hemorrhage. 2. Trace residual acute subdural hemorrhage layering along the posterior falx cerebri. 3. Resolution of the previously described pneumocephalus. 4. No midline shift or hydrocephalus. ACT 112: Negative or not required by law. The above report was generated using voice recognition software. It may contain grammatical, syntax o r spelling errors. Electronically signed by: Mehdi Goins M.D. 03/24/2022 9:16 PM
[2022-03-24 21:21] LABS: Troponin I High Sensitivity 4.8 pg/ml (0-14)
[2022-03-24 21:22] LABS: Albumin Level 4.6 gm/dl (3.4-5.0); BUN Creatinine Ratio 20.3 (10-20); Bilirubin Direct 0.1 mg/dl (0-0.2); Bilirubin,Total 0.5 mg/dl (0.2-1.0); Calcium 9.9 mg/dl (8.5-10.1); Creatinine Clr Calc Pharmacy 115.7 ml/min; Est GFR (African American) 117.2 ml/min; Est GFR (Non-African American) 101.2 ml/min; Magnesium 1.9 mg/dl (1.7-2.4); Potassium 3.3 mmol/L (3.5-5.1); Total Protein 8.1 gm/dl (6.0-8.3)
[2022-03-24] MEDS ORDERED: POTASSIUM CHLORIDE CRTAB 20 MEQ TABCR PO STA (22:22)
[2022-03-24] MEDS ORDERED: MAGNESIUM SULFATE / D5W 1 GM/100 ML BAG IV STA (22:26)
[2022-03-24] MEDS ORDERED: LACTATED RINGER'S 1,000 ML IV STA (22:26)
--- NOTE | 2022-03-24 23:50 | History & Physical Report ---
Date of Service March 24, 2022 Assessment & Plan (1) TIA (transient ischemic attack): Plan: hx intracranial hemorrhage/history eclampsia Hypertension, slightly elevated hx ASD as per records, spontaneous closure as per documentation anxiety/mood disorder, at baseline Hyperglycemia rule out DM past tobacco abuse Medical telemetry Neurochecks BP control and MRI imaging of the brain as per [facility] neurologist on-call (Dr. Galindo ) recommendation as per conversation with ER provider. We will add TTE and lipid profile to TIA work-up Neurology consult Re: TIA/recent ICH Check hemoglobin A1c DVT prophylaxis with SCDs Re: Recent ICH Full code Text document was generated using [employer] voice recognition software. It may contain grammatical or spelling errors. Kindly contact undersigned for clarification of any documentation item in question. History of Present Illness Chief Complaint: Blurred vision right eye, RUE paresthesias Primary Care Provider: Priti Ramirez PA-C History obtained from patient and records. Medical history significant for intracranial hemorrhage, history eclampsia, ASD as per records, anxiety/mood disorder, past tobacco abuse. Last [facility] confinement 2 weeks ago for vaginal delivery complicated by eclampsia and intracranial hemorrhage. , patient noted to have headaches, uncontrolled blood pressure in the 200s followed by seizures. Patient subsequently intubated for agitation/agonal breathing. CT head showed parenchymal hemorrhage left basal ganglia without midline shift. Patient subsequently transferred to [facility] for further management. Patient confined at [facility] ICU from March 15 to March 19, 2022. CTA head neck done upon [facility] arrival was negative for intracranial aneurysm/vascular malformations. Intraparenchymal hemorrhage noted with intraventricular extension and associated mass-effect. Last CT done at [facility] last March 18, 2022 showed stable left basal ganglia interpretable hemorrhage with intraventricular hemorrhage. Stable mass-effect without evidence of hydrocephalus. Thin posterior parafalcine hyperdensity may represent focal subdural hemorrhage. Cerebellar hyperdensity likely representing streak artifact. No neurosurgical intervention. Patient subsequently extubated. Keppra initiated for seizure prophylaxis discontinued eventually. Patient discharged on amlodipine 5 mg daily for hypertension. Goal BP was less than 150/100 as per therapy manager service specification. Hoarseness noted postextubation as per patient Intermittent posterior headaches since discharge home. Relief with Tylenol. SBP 140 to 150s at home. Patient compliant with home medications. Usual stress taking care of her along with her 3-year-old child. Patient seen at PCPs office on follow-up visit 2 days ago. Amlodipine dose increased from 5 mg to 10 mg daily. Outpatient neurology referral contemplated. Today patient noticed transient right visual field blurring associated with RUE tingling/paresthesias. No slurred speech/no leg weakness. No neck pain. Patient denies chest pain, SOB. Improved symptoms upon arrival at the ER. Medical History as above Surgical History : Dental surgery Family History : Heart disease, DM, pulmonary stenosis, DM, lung cancer Personal/Social history : Past tobacco abuse, no EtOH intake, prior work as a general cargo clerk at a [employer] Allergies Allergy/AdvReac Type Severity Reaction Status Date / Time cephalexin Allergy Intermediate Hives Verified 03/24/22 21:26 Penicillins Allergy Intermediate Hives Verified 03/24/22 21:26 Sulfa (Sulfonamide Allergy Intermediate Hives Verified 03/24/22 21:26 Antibiotics) Home Medications Medication Instructions Recorded Confirmed Type pantoprazole 40 mg tablet,delayed 40 mg PO QAM 02/23/19 03/24/22 History release (Protonix) venlafaxine 150 mg 150 mg PO QAM 08/23/21 03/25/22 History capsule,extended release 24 hr iron,carbonyl 65 mg-vitamin C 125 1 tab PO QAM 03/14/22 03/24/22 History mg tablet,delayed release (Vitron-C) amlodipine 10 mg tablet 10 mg PO QAM 03/24/22 03/24/22 History magnesium glycinate 100 mg tablet 100 mg PO QAM 03/24/22 03/24/22 History ondansetron 8 mg disintegrating 8 mg PO DIRECTED PRN 03/24/22 03/24/22 History tablet venlafaxine 37.5 mg 37.5 mg PO QAM 03/24/22 03/24/22 History capsule,extended release 24 hr Past Med/Surg History Medical History Depression GERD (gastroesophageal reflux disease) Controlled with medicine IBS (irritable bowel syndrome) No significant past medical history Ostium secundum atrial septal defect history of as a baby. Has closed off since Asymptomatic Surgical History H/O colonoscopy H/O esophagogastroduodenoscopy [place] teeth extracted Family History Mother Family history of diabetes mellitus Lung cancer, lower lobe Social History Smoking Status: Former smoker Second Hand Exposure: No; Do You Dip or Chew Tobacco: No; Tobacco Cessation Education Requested by Patient: No Hx Alcohol Use: Yes Hx Substance Use: No Preferred Language: Faroese Communication Ability: Effective Freight Caller Required: No Beliefs That Will Affect Care: None marital status: Current Living Situation: Spouse Current Living Situation Comment: 3yr daughter Other Information That Helps Us Care for You: No Feels Safe at Home: Yes Safety Concerns: Feels Safe At This Time Assistive Devices: None Review of Systems Review of Systems: As per HPI, all other systems reviewed and negative Physical Exam Physical Exam: GENERAL: Comfortable, pleasant, obese, no respiratory distress SKIN: Normal color, warm HEENT: [place] palpebral conjunctivae, no ptosis, dry buccal mucosa NECK : Supple, no tenderness CHEST : CTA, no tenderness HEART : RRR, no obvious murmurs ABDOMEN: Some distention, nontender EXTREMITIES : Minimal LE swelling, no LE tenderness, no other conspicuous deformities noted NEUROLOGIC : Coherent, no facial asymmetry, gait and stance not assessed Results & Data Results & Data ([facility]) Vital Signs (Past 12 Hours) Vital Signs Temp Pulse Pulse Resp BP BP Pulse Ox 03/24/22 23:39 37.0 C 86 12 142/99 H 98 03/24/22 23:30 70 22 142/99 H 97 03/24/22 23:20 67 23 138/97 03/24/22 23:10 69 22 135/96 03/24/22 23:00 75 20 139/97 03/24/22 22:50 136/97 98 03/24/22 22:40 146/101 H 03/24/22 22:35 98 03/24/22 22:30 160/105 H 98 03/24/22 22:20 139/102 H 97 03/24/22 22:10 136/103 H 96 03/24/22 22:02 96 03/24/22 21:40 147/95 H 97 03/24/22 21:35 125/97 97 03/24/22 21:31 97 06/04/22 21:30 125/97 03/24/22 21:29 96 03/24/22 21:20 138/92 03/24/22 21:19 98 03/24/22 21:10 135/89 03/24/22 21:09 97 03/24/22 21:05 103 H 18 143/97 H 143/97 H 97 03/24/22 20:51 101 H 22 98 03/24/22 20:41 103 H 20 135/97 97 03/24/22 20:23 106 H 18 137/99 97 Laboratory Results Laboratory Results WBC 10.57 K/uL (4.8-10.8) 03/24/22 20:30 RBC 4.70 M/uL (4.2-5.4) 03/24/22 20:30 Hgb 14.9 g/dL (12.0-16.0) 03/24/22 20:30 Hct 43.5 % (37-47) 03/24/22 20:30 MCV 92.6 fL (80-100) 03/24/22 20:30 MCH 31.7 pg (25-34) 03/24/22 20:30 MCHC 34.3 g/dL (32-36) 03/24/22 20:30 RDW Std Deviation 44.1 fL (36.4-46.3) 03/24/22 20:30 RDW Coeff of [place] 13.0 % (11.5-14.5) 03/24/22 20:30 Plt Count 417 K/uL (130-400) H 03/24/22 20:30 MPV 9.5 fL (7.4-10.4) 03/24/22 20:30 Immature Gran % (Auto) 0.3 % 03/24/22 20:30 Neut % (Auto) 67.3 % 03/24/22 20:30 Lymph % (Auto) 24.7 % 03/24/22 20:30 [place] % (Auto) 6.6 % 03/24/22 20:30 Eos % (Auto) 0.9 % 03/24/22 20:30 Baso % (Auto) 0.2 % 03/24/22 20:30 Neut # (Auto) 7.12 K/uL (1.4-6.5) H 03/24/22 20:30 Lymph # (Auto) 2.61 K/uL (1.2-3.4) 03/24/22 20:30 [place] # (Auto) 0.70 K/uL (0.11-0.59) H 03/24/22 20:30 Eos # (Auto) 0.09 K/uL (0-0.5) 03/24/22 20:30 Baso # (Auto) 0.02 K/uL (0-0.2) 03/24/22 20:30 Immature Gran # (Auto) 0.03 K/uL (0.00-0.02) H 03/24/22 20:30 Sodium 139 mmol/L (136-145) 03/24/22 20:30 Potassium 3.3 mmol/L (3.5-5.1) L 03/24/22 20:30 Chloride 103 mmol/L (98-107) 03/24/22 20:30 Carbon Dioxide 23 mmol/L (21-32) 03/24/22 20:30 Anion Gap 13 (3-11) H 03/24/22 20:30 BUN 16 mg/dl (6-23) 03/24/22 20:30 Creatinine 0.79 mg/dl (0.6-1.2) 03/24/22 20:30 Est Cr Clr Drug Dosing 115.7 ml/min 03/24/22 20:30 Est GFR ( Amer) 117.2 ml/min 03/24/22 20:30 Est GFR (Non-Af Amer) 101.2 ml/min 03/24/22 20:30 BUN/Creatinine Ratio 20.3 (10-20) H 03/24/22 20:30 Glucose 111 mg/dl (70-99(Fasting)) H 03/24/22 20:30 Calcium 9.9 mg/dl (8.5-10.1) 03/24/22 20:30 Magnesium 1.9 mg/dl (1.7-2.4) 03/24/22 20:30 Total Bilirubin 0.5 mg/dl (0.2-1.0) 03/24/22 20:30 Direct Bilirubin 0.1 mg/dl (0-0.2) 03/24/22 20:30 AST 11 U/L (13-39) L 03/24/22 20:30 ALT 16 U/L (7-52) 03/24/22 20:30 Alkaline Phosphatase 125 U/L (34-104) H 03/24/22 20:30 Troponin I High Sens 4.8 pg/ml (0-14) D 03/24/22 20:30 Total Protein 8.1 gm/dl (6.0-8.3) 03/24/22 20:30 Albumin 4.6 gm/dl (3.4-5.0) 03/24/22 20:30 SARS-CoV-2, RNA, NAAT NEGATIVE (NEGATIVE) 03/24/22 21:[address] 03/24/22 20:44 CT head/brain wo con CLINICAL HISTORY: 31 years-old Female with visual field deficit, right arm numbness, resolved. Acute visual field defect TECHNIQUE: Multiple axial CT images of the head were obtained without contrast. A dose lowering technique was utilized adhering to the principles of ALARA. CT DOSE: 614.27 mGy.cm COMPARISON: Head CT 03/14/2022. FINDINGS: There is no midline shift, intracranial mass, hydrocephalus, territorial ischemia or abnormal extra-axial collection. Resolution of the previously described pneumocephalus. There is near complete resolution of the recently described acute intracranial hemorrhage is only minimal residual acute subdural hematoma layering along the posterior aspect of the falx cerebri on image 26 measuring less than 2 mm transversely. The previously described intraparenchymal or intraventricular hemorrhage is no longer appreciated. Ill-defined hypodensity of the left lentiform nucleus, adjacent anterior limb of the internal capsule and caudate nuclear head. The calvarium is intact. The paranasal sinuses, mastoid air cells, and middle ear cavities are clear. IMPRESSION: 1. Ill-defined hypodensity of the left lentiform nucleus, adjacent anterior limb of the internal capsule and caudate nuclear head is likely from edema associated with resolved acute intraparenchymal hemorrhage. There is also resolution of the acute intraventricular hemorrhage. 2. Trace residual acute subdural hemorrhage layering along the posterior falx cerebri. 3. Resolution of the previously described pneumocephalus. 4. No midline shift or hydrocephalus. ACT 112: Negative or not required by law. The above report was generated using voice recognition software. It may contain grammatical, syntax or spelling errors. Electronically signed by: Mehdi Goins M.D. 03/24/2022 9:16 PM Diagnostic Findings EKG as per my interpretation: Rate 100, NSR, normal axis, T wave abnormalities inferior and anterolateral leads
[2022-03-25] MEDS ORDERED: PROMETHAZINE HCL 12.5 MG in SODIUM CHLORIDE 0.9% 50 ML IV PRN (01:21)
[2022-03-25] MEDS ORDERED: ACETAMINOPHEN 325 MG TAB PO PRN (01:21)
[2022-03-25] MEDS ORDERED: LORazepam 2 MG/1 ML VIAL IV PRN (01:21)
[2022-03-25] MEDS ORDERED: PHARMACIST DISCHARGE MED REC CONSULT PRN (01:21)
[2022-03-25 07:27] LABS: Basophils # (auto) 0.02 K/uL (0-0.2); Basophils % (auto) 0.3 %; Eosinophils # (auto) 0.04 K/uL (0-0.5); Eosinophils % (auto) 0.5 %; Hematocrit (blood only) 44.6 % (37-47); Hemoglobin 15.1 g/dL (12.0-16.0); Immature Granulocytes # (auto) 0.04 K/uL (0.00-0.02); Immature Granulocytes % (auto) 0.5 %; Lymphocytes # (auto) 1.76 K/uL (1.2-3.4); Lymphocytes % (auto) 22.7 %; Mean Corpuscular Hemoglobin 31.3 pg (25-34); Mean Corpuscular Hgb Conc 33.9 g/dL (32-36); Mean Corpuscular Volume 92.3 fL (80-100); Mean Platelet Volume 9.7 fL (7.4-10.4); Monocytes # (auto) 0.63 K/uL (0.11-0.59); Monocytes % (auto) 8.1 %; Neutrophils # (auto) 5.28 K/uL (1.4-6.5); Neutrophils % (auto) 67.9 %; Platelet Count 364 K/uL (130-400); RDW Coefficient of Variation 13.3 % (11.5-14.5); RDW Standard Deviation 44.7 fL (36.4-46.3); Red Blood Count 4.83 M/uL (4.2-5.4); White Blood Count 7.77 K/uL (4.8-10.8)
[2022-03-25 08:11] LABS: BUN Creatinine Ratio 16.4 (10-20); Calcium 9.8 mg/dl (8.5-10.1); Chol HDL Ratio 4.6 (0-5); Creatinine Clr Calc Pharmacy 149.8 ml/min; Est GFR (Non-African American) 122.5 ml/min
--- NOTE | 2022-03-25 08:52 | Electrocardiogram Report ---
Test Reason : Blood Pressure : / mmHG Vent. Rate : 098 BPM Atrial Rate : 098 BPM P-R Int : 132 ms QRS Dur : 088 ms QT Int : 352 ms P-R-T Axes : 029 022 003 degrees QTc Int : 449 ms Normal sinus rhythm Nonspecific T wave abnormality Abnormal ECG When compared with ECG of 14-MAR-2022 14:10, T wave inversion now evident in Inferior leads Nonspecific T wave abnormality, worse in Anterolateral leads Confirmed by Kolby Daniels ([id number]) on 03/25/2022 8:52:10 AM Referred By: REFERRED SELF Confirmed By:Kolby Daniels
[2022-03-25] MEDS ORDERED: NON-FORMULARY MEDICATION (Iron,Carbonyl-Vitamin C [Vitron-C] 65 mg iron- 125 mg Tablet,Del PO SCH (09:00)
[2022-03-25] MEDS ORDERED: PANTOprazole 40 MG TAB PO SCH (09:00)
[2022-03-25] MEDS ORDERED: amLODIPine BESYLATE 5 MG TAB PO SCH (09:00)
[2022-03-25] MEDS ORDERED: VENLAFAXINE HCL XR 150 MG CAPXR PO SCH (09:00)
[2022-03-25] MEDS ORDERED: NON-FORMULARY MEDICATION (Magnesium Glycinate 100 mg Tablet) PO SCH (09:00)
[2022-03-25] MEDS ORDERED: VENLAFAXINE HCL XR 37.5 MG CAPXR PO SCH ×3 (09:00)
[2022-03-25 11:01] LABS: Appearance Urine Turbid (Clear); Bacteria Urine Automated 1+ (Negative); Bilirubin Urine Negative (Negative); Blood Urine 3+ (Negative); Color Urine Yellow; Epithelial Cell Urine Auto >30 /lpf (0-5); Glucose Urine UA Negative (Negative); Ketones Urine Negative (Negative); Leukocyte Esterase Urine 3+ (Negative); Nitrite Urine Negative (Negative); Protein Urine 2+ (Negative); RBC Urine Automated >30 /hpf (0-4); Specific Gravity Urine 1.014 (1.000-1.030); Urobilinogen Urine Negative (Negative); WBC Urine Automated >30 /hpf (0-5)
[2022-03-25 11:19] LABS: Cast Urine Automated 0 /lpf (0-5)
--- NOTE | 2022-03-25 11:46 | Magnetic Resonance Report ---
MRI OF THE BRAIN WITHOUT IV CONTRAST CLINICAL HISTORY: Transient ischemic attack. Known intracranial hemorrhage. Seizure. COMPARISON STUDY: CT of the brain dated 03/24/2022. TECHNIQUE: MRI of the brain was performed utilizing various T1 and T2-weighted sequences in the axial , sagittal, and coronal planes. IV contrast was not administered for this examination. FINDINGS: Brain parenchyma: There is an approximately 2 cm focus of T1 signal hyperintensity within the left ca udate head, the anterior limb of the left internal capsule, and the left lentiform nucleus consistent with hemorrhage. This is likely subacute, and apparent restricted diffusion is seen in this region. Trace residual subdural hemorrhage is again seen along the posterior falx. There is no midline shift. The cerebellar tonsils are normal in configuration. Ventricles, sulci, and cisterns: Normal in configuration. No intraventricular blood is clearly identi fied. Pituitary and sella: Unremarkable. Intracranial vasculature: Normal flow voids are maintained at the skull base. Orbits: The bony orbits are grossly intact. Orbital contents are normal in appearance. Sinuses and mastoids: There is a trace left mastoid effusion. The right mastoid air cells and the par anasal sinuses are clear. Calvarium: Unremarkable. Cervical cord: Partially visualized cervical spinal cord is normal in morphology and signal intensity . IMPRESSION: 1. There is approximately 2 cm focus of T1 signal hyperintensity centered within the left caudate hea d, the anterior limb of the left internal capsule, and the left lentiform nucleus. This corresponds t o blood products/hemorrhage when correlated with recent CT scans of the brain. Acute on subacute hemo rrhage is not excluded, and this is better evaluated by CT. 2. There is apparent restricted diffusion within this region which may be related to the hemorrhage. Underlying acute to subacute lacunar infarct is not excluded. 3. There is a ring of hemosiderin within the hemorrhage. An underlying lesion such as cavernoma is no t excluded. A follow-up MRI in several months time is recommended for reassessment. 4. There is trace residual subdural blood along the posterior falx. ACT 112: Negative or not required by law. Electronically signed by: John Zheng M.D. 03/25/2022 11:43 AM
--- NOTE | 2022-03-25 11:51 | Magnetic Resonance Report ---
MR ANGIOGRAM OF THE BRAIN CLINICAL HISTORY: Intracranial hemorrhage. Seizure. COMPARISON STUDY: MRI of the brain performed concurrently on 03/25/2022. TECHNIQUE: 3-D [id number] MR angiography of the intracranial circulation is performed. 3-D tumble views are created and assessed. IV contrast was not administered for this examination. FINDINGS: The [place] is developmentally complete. The internal carotid arteries are widely patent bilaterally, as are the anterior and middle cerebral arteries. The vertebrobasilar system and posterior cerebral arteries are widely patent. The left vertebral artery is dominant. The Intracrani al right vertebral artery is diminutive. There is no aneurysm, high-grade stenosis, or focal vessel c utoff seen throughout the intracranial circulation. Hemorrhage is again seen centered in the left cau date head, the arterial limb of the left internal capsule, and the left lentiform nucleus. IMPRESSION: Unremarkable MR angiogram of the brain. ACT 112: Negative or not required by law. Electronically signed by: John Zheng M.D. 03/25/2022 11:48 AM
[2022-03-25] MEDS ORDERED: STROKE PATIENT DISCHARGE STA (15:19)
--- NOTE | 2022-03-25 16:13 | Pharmacy Report ---
Pharmacist Stroke Counseling - Date of Service March 25, 2022 - Scope: Pharmacy has been consulted to provide medication discharge counseling for this patient admitted with [transient ischemic attack] as per the Pharmacist Discharge Counseling for Stroke Patients Protocol. - Medications on Discharge: Home Medications Medication Instructions Recorded Confirmed pantoprazole 40 mg tablet,delayed 40 mg PO QAM 02/23/19 03/24/22 release (Protonix) venlafaxine 150 mg 150 mg PO QAM 08/23/21 03/25/22 capsule,extended release 24 hr iron,carbonyl 65 mg-vitamin C 125 1 tab PO QAM 03/14/22 03/24/22 mg tablet,delayed release (Vitron-C) amlodipine 10 mg tablet 10 mg PO QAM 03/24/22 03/24/22 magnesium glycinate 100 mg tablet 100 mg PO QAM 03/24/22 03/24/22 ondansetron 8 mg disintegrating 8 mg PO DIRECTED PRN 03/24/22 03/24/22 tablet venlafaxine 37.5 mg 37.5 mg PO QAM 03/24/22 03/24/22 capsule,extended release 24 hr Medication Instructions Recorded atorvastatin 40 mg tablet 40 mg PO QAM 30 Days #30 tab 03/25/22 ciprofloxacin HCl 250 mg tablet 250 mg PO BID 3 Days #6 tab 03/25/22 fenofibrate nanocrystallized 145 145 mg PO QAM 30 Days #30 tab 03/25/22 mg tablet - Action: The above medications, specifically ones for stroke treatment/prophylaxis, have been reviewed in detail with the patient and/or patient care support representative(s) prior to discharge. This includes indication, common adverse reactions, drug interactions, and medication administration. Medication counseling has been employed using the teach-back method to ensure understanding. - Outcome: The patient and/or patient care support representative(s) have demonstrated understanding of the medications. Additional comments: Reviewed new medications with patient over the phone. Patient reports she is not . Discussed the importance of reaching out to her provider if things change and she decides she wants to breastfeed as many of her medications are contraindicated in . Patient agreed. Patient mentioned that she was previously on amitriptyline prior to for IBS. I told her to discuss with her PCP if they would want to resume that. She states she is not having any symptoms currently. I advised her to bring an updated med list to her next visit. Thank you for allowing pharmacy to be involved in the care of this patient. Please call [phone] with any additional questions
--- NOTE | 2022-03-25 18:37 | Discharge Summary ---
Date of Service March 25, 2022 Admission HPI Per Admitting Provider History obtained from patient and records. Medical history significant for intracranial hemorrhage, history eclampsia, ASD as per records, anxiety/mood disorder, past tobacco abuse. Last [facility] confinement 2 weeks ago for vaginal delivery complicated by eclampsia and intracranial hemorrhage. , patient noted to have headaches, uncontrolled blood pressure in the 200s followed by seizures. Patient subsequently intubated for agitation/agonal breathing. CT head showed parenchymal hemorrhage left basal ganglia without midline shift. Patient subsequently transferred to [facility] for further management. Patient confined at [facility] ICU from March 15 to March 19, 2022. CTA head neck done upon [facility] arrival was negative for intracranial aneurysm/vascular malformations. Intraparenchymal hemorrhage noted with intraventricular extension and associated mass-effect. Last CT done at [facility] last March 18, 2022 showed stable left basal ganglia interpretable hemorrhage with intraventricular hemorrhage. Stable mass-effect without evidence of hydrocephalus. Thin posterior parafalcine hyperdensity may represent focal subdural hemorrhage. Cerebellar hyperdensity likely representing streak artifact. No neurosurgical intervention. Patient subsequently extubated. Keppra initiated for seizure prophylaxis discontinued eventually. Patient discharged on amlodipine 5 mg daily for hypertension. Goal BP was less than 150/100 as per air conditioning technician service specification. Hoarseness noted postextubation as per patient Intermittent posterior headaches since discharge home. Relief with Tylenol. SBP 140 to 150s at home. Patient compliant with home medications. Usual stress taking care of her along with her 3-year-old child. Patient seen at PCPs office on follow-up visit 2 days ago. Amlodipine dose increased from 5 mg to 10 mg daily. Outpatient neurology referral contemplated. Today patient noticed transient right visual field blurring associated with RUE tingling/paresthesias. No slurred speech/no leg weakness. No neck pain. Patient denies chest pain, SOB. Improved symptoms upon arrival at the ER. 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 Principal Diagnosis TIA Hyperlipidemia Acute cystitis without hematuria Discharge Exam Patient feels well No acute distress, non toxic head-Normocephalic, atraumatic CV- Regular rate and rhythm Breathing comfortably on room air, no wheezing/rhonchi Discharge Data Allergies Allergy/AdvReac Type Severity Reaction Status Date / Time cephalexin Allergy Intermediate Hives Verified 03/24/22 21:26 Penicillins Allergy Intermediate Hives Verified 03/24/22 21:26 Sulfa (Sulfonamide Allergy Intermediate Hives Verified 03/24/22 21:26 Antibiotics) Consultations 03/24/22 21:58 ED Decision to Admit Stat 03/25/22 01:21 Consult Neurology Routine Ordered Studies 03/24/22 20:44 CT head/brain wo con Stat 03/25/22 09:02 MR angio head wo con Routine MR brain wo con Routine Hospital Course Ms Joanne Newton is a 31 year old female who recently had her second child 2 weeks ago which was complicated by ecclampsia and intracranial hemorrhage. She was discharged from [facility] February. Since being at home, she has been doing well. She presented to the ER 03/24 for transient blurry vision and numbness/tingling of her right arm. She was admitted for further evaluation. Here, she had an CT head which showed resolving intracranial hemorrhage and MRI brain with report as listed below. MRA brain was unremarkable. She was seen by Neurology and cleared for discharge home with plan for outpatient EMG for her right wrist tingling and MRV. She had a TTE here which was unremarkable. She will follow up with Dr Davenport after discharge. She had a lipid panel here which revealed elevated TG and she was started on fenofibrate and statin. She did not receive aspirin due to recent ICH. Incidentally, while here, she complained of dysuria and urinalysis suggested acute cystitis. She has an allergy to PCN, cephalosporin and sulfa drugs so she was discharged on 3 days of ciprofloxacin. At the time of discharge, her urine culture was pending and she was instructed to follow up with her PCP within 1 week for after discharge care and to review urine culture results. At the time of discharge, she felt back to her baseline and felt comfortable to be released. MRI brain- IMPRESSION: 1. There is approximately 2 cm focus of T1 signal hyperintensity centered within the left caudate head, the anterior limb of the left internal capsule, and the left lentiform nucleus. This corresponds to blood products/hemorrhage when correlated with recent CT scans of the brain. Acute on subacute hemorrhage is not excluded, and this is better evaluated by CT. 2. There is apparent restricted diffusion within this region which may be related to the hemorrhage. Underlying acute to subacute lacunar infarct is not excluded. 3. There is a ring of hemosiderin within the hemorrhage. An underlying lesion such as cavernoma is not excluded. A follow-up MRI in several months time is recommended for reassessment. 4. There is trace residual subdural blood along the posterior falx. Total Time Total Time Spent Total Time Spent (In Minutes): 35 Discharge Plan Discharge Items Patient Disposition: Home - Self-Care Reason For Visit: TIA Discharge Diagnosis: TIA Hypertriglyceridemia UTI Condition on Discharge: Good Activity: Resume your previous activity Non-emergency contact: Primary Care Provider and Neurologist Call non-emergency contact if: you have any medication questions and your symptoms worsen Follow-up/Referrals: Priti Ramirez PA-C [Primary Care Provider] - Chucky Davenport DO [Physician] - Diet: Heart Healthy Addtl Attending Provider Instructions: You were started on atorvastatin (Lipitor) 40mg daily and fenofibrate daily for elevated cholesterol Your remaining home medications are unchanged You were seen by Dr Davenport here who will follow up with you in the office. He plans to order an EMG and MRV You were complaining of urinary symptoms and your urinalysis suggests a UTI. You were started on ciprofloxacin for a UTI. Urine cultures were pending at discharge, please follow up with your PCP for final culture results especially if your symptoms do not resolve. Pending Studies at Discharge: Yes Studies:: Urine cultures Stand-Alone Forms: My [facility] Georgina Goodman, Smoking Cessation Medications and DC Order Prescriptions: New atorvastatin 40 mg Tablet 40 mg PO QAM 30 Days Qty: 30 RF: 0 fenofibrate nanocrystallized 145 mg Tablet 145 mg PO QAM 30 Days Qty: 30 RF: 0 ciprofloxacin HCl 250 mg tablet 250 mg PO BID 3 Days Qty: 6 RF: 0 Continued pantoprazole [Protonix] 40 mg Tablet,Delayed Release (Dr/Ec) 40 mg PO QAM RF: 0 venlafaxine 150 mg capsule,extended release 24hr 150 mg PO QAM RF: 0 Vitron-C 65 mg iron- 125 mg Tablet,Delayed Release (Dr/Ec) 1 tab PO QAM RF: 0 venlafaxine 37.5 mg capsule,extended release 24hr 37.5 mg PO QAM RF: 0 ondansetron 8 mg tablet,disintegrating 8 mg PO DIRECTED PRN (Reason: NAUSEA/VOMITING) RF: 0 amlodipine 10 mg Tablet 10 mg PO QAM RF: 0 magnesium glycinate 100 mg Tablet 100 mg PO QAM RF: 0 Discharge Orders: Discharge Order (Routine); Ordered 03/25/22 Ordered By: Mustapha Russ/Other Patient Handouts: Fenofibrate Oral Tablet 145 mg, Atorvastatin Oral Tablet 20 mg, EMG Nerve Conduction Ch, TIA Dc, Stroke Prevention Eating Healthy Admission Data Admit Date/Time: 03/24/22 23:52 Attending Provider: Mustapha Jackson Admit Provider: Gamal Linod Primary Care Provider: Priti Ramirez Other Providers: Gamal Lindo ; Misty Self ; Kaiser Gonzales ; Misty David ; Chucky Davenport ; Shahrzad Carcamo Other Interventions: Discharge Summary Assessment (RN) Last Done: 03/25/22 15:39
--- NOTE | 2022-03-25 21:24 | Consultation Report ---
NEUROLOGY CONSULTATION NOTE DATE OF CONSULTATION: 03/25/2022. CHIEF COMPLAINT: Right upper extremity paresthesias. HISTORY OF PRESENT ILLNESS: A 31-year-old female with a history of eclampsia, intracranial hemorrhage, atrial septal defect, admitted for evaluation of right upper extremity paresthesias/tingling. She also noted transient right visual field blurring. She had no slurred speech, no weakness. No neck pain. The patient was admitted for evaluation of possible transient ischemic attack given her prior history. She was admitted to [facility] ICU on 03/15 through the 03/19. She was seen in [facility] 2 weeks prior to that for a vaginal delivery complicated by eclampsia and intracranial hemorrhage. Postpartumly, she was noted to have a headache and uncontrolled blood pressure in the 200s followed by seizures. She was intubated for agitation and agonal breathing. CT of the head showed parenchymal hemorrhage of the left basal ganglia without midline shift. She was transferred to [facility]. She underwent a CT of the head and neck, which showed no evidence of aneurysm or vascular malformation. Intraparenchymal hemorrhage was noted with intraventricular extension associated with mass effect. She had a CT of the head performed on 03/18, it showed stable left basal ganglia intraparenchymal hemorrhage with IVH. She had no surgical intervention. She was extubated. The patient was initially placed on Keppra. She was discharged on amlodipine for hypertension. After discharge, her amlodipine was increased to 10 mg daily, outpatient neurology referral was considered. The patient was admitted for possible transient ischemic attack versus further stroke evaluation last evening. Neurology was consulted upon admission. ALLERGIES: CEPHALEXIN, PENICILLINS, SULFA. HOME MEDICATIONS: Norvasc 10 mg, vitamin C, magnesium, Zofran as needed, Effexor 150 mg, Protonix. PAST MEDICAL HISTORY: Depression, gastroesophageal reflux disease, eclampsia, intraparenchymal hemorrhage, atrial septal defect. PAST SURGICAL HISTORY: Colonoscopy, EGD, wisdom teeth extraction. FAMILY HISTORY: Includes mother has diabetes and lung cancer. SOCIAL HISTORY: She is a former smoker. She is . No alcohol use. REVIEW OF SYSTEMS: Positive for right upper extremity paresthesias and right eye blurry vision. All other review of systems was negative. PHYSICAL EXAMINATION: VITAL SIGNS: Blood pressure 121/83, pulse is 87, respiratory rate 20, temperature 36.7 degrees Celsius, oxygen saturation is 99% on room air. GENERAL: The patient is awake. She appears in no acute distress. She appears stated age. HEENT: Head is atraumatic, normocephalic. Eyes are midline. Normal conjunctivae. NECK: Supple. LUNGS: Normal respiratory effort. CARDIAC: Pulses intact. ABDOMEN: Nondistended. SKIN: No skin rash. PSYCHIATRIC: Normal mood and normal affect. NEUROLOGIC: She is awake, alert and oriented to person, place, and time. She is following commands. Speech is clear. Face is symmetric. Extraocular muscles intact. Pupils symmetric. Tongue is midline. Facial sensation is intact. Sensation is intact in the upper and lower extremities. No focal weakness. No ataxia with [id number] testing. Reflexes show negative Tio sign, no ankle clonus. DIAGNOSTIC TESTING AND LABORATORY VALUES: WBC 7.77, hemoglobin 15.1, platelet count 364. INR 0.9. Sodium is 142, potassium 4.0, chloride 108, creatinine 0.61, magnesium 1.9. LDL cholesterol 159. Urinalysis showed turbid fluid, 2+ protein, 3+ leukocyte esterase, 1+ bacteria. Urine culture is pending. IMAGING: Head CT noncontrast showed 2 cm hyperdense focus suggestive of acute hemorrhage within the left basal ganglia. Etiology of this hemorrhage is not clear. Acute intraventricular hemorrhage as detailed above. This study was performed on 03/14/2022. Repeat head CT noncontrast performed on 03/24/2022; ill-defined hypodensity of the left basal ganglia adjacent to the anterior limb of the internal capsule and caudate nucleus, likely edema associated with prior intraparenchymal hemorrhage, resolution of the acute intraventricular hemorrhage, trace residual acute subdural hemorrhage layering along the posterior falx cerebri. MRI of the brain showed approximately 2 cm focus of T1 signal hyperintensity centered within the left caudate head and anterior limb of the internal capsule and left lentiform nucleus. This corresponds to blood products/hemorrhage. There is an apparent restricted diffusion within this region, which may be related to the hemorrhage, underlying acute to subacute lacunar infarct is not excluded. There is a ring of hemosiderin within the hemorrhage, and underlying lesion such as a cavernoma is not excluded. Head MRI was unremarkable. ASSESSMENT AND PLAN: A 31-year-old female with a history of eclampsia and left basal ganglia hemorrhage in 02/2022, admitted with transient right eye blurry vision and right upper extremity paresthesias. Differential diagnosis certainly includes unmasking of previous hemorrhagic stroke. Blood pressures have normalized. Other differential diagnosis includes a migraine aura or complex migraine. Given prior history of hemorrhage, I would not recommend starting aspirin. The patient has no significant stroke risk factors. Recommend to continue monitoring blood pressures as an outpatient. The patient will benefit from keeping a headache log. We will arrange for Neurology followup as an outpatient with outpatient EMG for eval of bilateral CTS and MRV as outpatient. [facility] ID[facility] [id number] [facility]
[2022-03-26 06:41] LABS: Estimated Average Glucose 103 mg/dl; Hemoglobin A1C 5.2 % (4.5-5.6)
[2022-03-26] MEDS ORDERED: ATORVASTATIN 40 MG TAB PO SCH (09:00)
[2022-03-26] MEDS ORDERED: FENOFIBRATE NANOCRYSTALLIZED 145 MG TABLET PO SCH (09:00)
== END 2022-03-25 16:54 | disposition home or self-care (01) | DRG 69 ==
LOC: ED 20:19 → 2N 23:52 → INTOOBSV 23:52 → 2N 03-25 00:47